=== PATIENT | male | born 1990 | race Caucasian/White ===

== ENCOUNTER 2022-12-30 08:03 | Emergency (ER) | payer OTHER, SELFPAY ==
[2022-12-30 08:07] VITALS: BP 156/94; PULSE 89; RESP 16; TEMP 36.6; O2SAT 97; BMI 34.3
--- NOTE | 2022-12-30 08:19 | ED_ITS ---
HPI - General Adult General Chief complaint: General Medical Stated complaint: medication on program Time Seen by Provider: 12/30/22 08:17 Source: patient Mode of arrival: ambulatory History of Present Illness HPI narrative: This is a 32 years old female presented to emergency department presented emergency department the requesting a dose of methadone, she is in a longterm right now. She has history of opioid use disorder she has been on methadone for about 2 years Onset (ago): day(s) (1) Radiation: non-radiation Severity: mild Related Data Allergies Allergy/AdvReac Type Severity Reaction Status Date / Time No Known Allergies Allergy Verified 12/30/22 08:18 Review of Systems Constitutional: Constitutional: Reports no additional constitutional complaints Cardiovascular: Cardiovascular: Reports no additional cardiovascular complaints Endocrine: Endocrine: Reports no additional endocrine complaints COUNTS INCLUDE 234 BEDS AT THE [facility] Past Medical History Attestation statement: The following information was validated with the patient. COUNTS INCLUDE 234 BEDS AT THE [facility] Narrative: Opioid use disorder Social History Social History Advance Directives: No Advance Directives Information Provided: No Physical Exam ED Vital Signs: Vital Signs - 24 hr 12/30/22 08:07 Temperature 97.8 F Pulse Rate 89 Respiratory Rate 16 Blood Pressure 156/94 H Pulse Oximetry 97 Oxygen Delivery Method Room Air BMI result Body Mass Index 34.3 Const Other: Looks well no toxic-appearing General: cooperative, healthy appearing, comfortable and no acute distress Nutritional Appearance: well nourished Orientation/consciousness: patient oriented x3 Limitations: no limitations HENMT Head: Yes normal to inspection General nose exam: Normal external nose present Face and sinus: Yes normal facial exam Mouth: Normal oral and palatal mucosa present Neck Neck: Yes normal visual inspection, Yes full ROM and Yes no lymphadenopathy Resp Effort & Inspection: normal respiratory effort Auscultation: clear to auscultation bilaterally Cardio Jugular venous distension: no JVD Rate: regular rate Rhythm: regular rhythm GI Inspection: Yes normal to inspection Palpation (GI): Soft to palpation, not firm, nontender and no guarding Auscultation: normal bowel sounds Skin General skin exam: no rashes or lesions noted Lesions: no lesions Rashes: no rashes Neuro General: patient oriented x3 Cranial nerves: Yes CN's II-XII intact bilaterally Motor exam (neuro): 5/5 motor strength present throughout Extrem General: Yes normal to inspection, Yes full ROM and Yes capillary refill normal Medications Administered Discontinued Medications Generic Name Dose Route Start Last Admin Trade Name Ana PRN Reason Stop Dose Admin Methadone HCl 120 mg 12/30/22 08:19 12/30/22 08:34 Methadone Hcl 20 Mg/2 Ml Oral.Conc PO 12/30/22 08:20 120 mg ONCE ONE Administration Medical Decision Making Medical Decision Making MDM Narrative: Patient presented requesting methadone does, will go ahed and administer the methadone Differential Diagnosis Differential Diagnoses: The differential diagnosis associated with the pre sentation includes Opioid use disorders like drug abuse/depression Discharge Plan Discharge Clinical Impression: Opioid abuse Patient Disposition: Home, Self-Care Instructions: Opioid Use Disorder (ED) Referrals: Physician,Unknown J [Primary Care Provider] - 5 days Stand Alone Forms: Work/School Release Interventions: ED Discharge Assessment Last Done: 12/30/22 08:43 Discharge Date/Time: 12/30/22 08:43
--- NOTE | 2022-12-30 08:28 | HE.PHANOTE ---
Methadone verifcation Patient brought last dose verification from [facility]. Patient last received methadone 120 mg on 12/29/22.
[2022-12-30] MEDS: methADONE HCl 20 MG/2 ML ORAL.CONC 120 MG PO (08:34)
--- NOTE | 2022-12-30 08:42 | PC.NURSE ---
PT WAS SEEN BY DR GRIMM, LAST DOSE WAS CONFIRMED AND PT WAS MEDICATED CHARTED. FOLLOW UP WITH CLINIC
== END 2022-12-30 08:43 | disposition home or self-care (01) ==
PROVIDERS: Emergency Provider Emergency Medicine
DX: F11.10 Opioid abuse, uncomplicated (principal); Z79.899 Other long term (current) drug therapy
CPT/HCPCS: 99282; 99283

== ENCOUNTER 2023-04-10 09:53 | Emergency (ER) | payer OTHER, SELFPAY ==
[2023-04-10 10:17] VITALS: BP 156/95; PULSE 88; RESP 16; TEMP 36.6; O2SAT 96; BMI 36.9
--- NOTE | 2023-04-10 12:49 | ED.BACK ---
HPI - Back Pain/Injury General Chief Complaint: Back Pain/Injury Stated Complaint: back pain around to l side Time Seen by Provider: 04/10/23 12:33 Source: patient Mode of arrival: ambulatory Limitations: no limitations History of Present Illness HPI Narrative: 32 yo male presenting to the ER for evaluation of painless left middle and lower back pain for the last 1 week. He states he woke up with the pain. The pain is in the left lower back and radiates to the left flank now as of 2 days ago. it also radiates to the buttock and intermittently down the leg and to the groin. No numbness, weakness, tingling, incontinence, issues emptying the bladder, urinary symptoms, abdominal pain, N/V/D or fevers. MD elicited complaint: back pain Onset (ago): week(s) (1) Timing: progressively worsening Severity: moderate Similar Symptoms Previously: No Quality: sharp and aching Location: left lower back Radiation: groin, buttocks and left upper leg Exacerbating factors: movement, walking and deep breaths Relieving factors: immobilization and medication Context: unknown Associated symptoms: denies other symptoms Treatments prior to arrival: NSAIDS Work related injury: No Related Data Previous Rx's Medication Instructions Recorded cyclobenzaprine 10 mg tablet 10 mg PO TID PRN muscle spasm #14 04/10/23 tabs ibuprofen 600 mg tablet 600 mg PO Q8H PRN pain #14 tabs 04/10/23 lidocaine 5 % topical patch 1 patch topical DAILY #15 ea 04/10/23 Allergies Allergy/AdvReac Type Severity Reaction Status Date / Time No Known Allergies Allergy Verified 12/30/22 08:18 Review of Systems Review of Systems: Yes all other systems are reviewed and are negative [facility] Social History Social History Advance Directives: No Physical Exam Vital Signs: Vital Signs: Last Vital Signs Temp 98 F 04/10/23 10:17 Pulse 88 04/10/23 10:17 Resp 16 04/10/23 10:17 BP 156/95 H 04/10/23 10:17 Pulse Ox 96 04/10/23 10:17 O2 Del Method Room Air 04/10/23 10:17 BMI result Body Mass Index 36.9 Appearance: Alert. Oriented X3. No acute distress. Head: normocephalic, atraumatic. Eyes: Pupils equal, round and reactive to light. ENT: Pharynx normal. No tonsillar swelling or exudate. Neck: Normal inspection. Neck supple. CVS: Normal heart rate and rhythm. Pulses normal. Respiratory: No respiratory distress. Breath sounds normal. Abdomen: Obese, Soft and nontender. +BS x4 Back: left upper lumbar area with soft tissue tenderness. no midline tenderness of the lumbar spine. no CVA tenderness +straight leg raise test Skin: Skin warm and dry. Normal skin color. Normal skin turgor. No rashes. Extremities: No lower extremity edema. No joint swelling. Neuro/psych: Oriented X 3. No motor deficit. No sensory deficit. CN II-XII intact. Normal speech and cognition. steady gait Medical Decision Making Medical Decision Making [facility] Narrative: 32 male presenting with 1 week of nontraumatic left lower back pain radiating to the left flank, left buttock and leg. no red flag symptoms of LBP. UA negative for infection and blood. doubt kidney stone or UTI. most likely MSK back pain. will treat accordingly. recommended outpatient PCP follow up and return precautions discussed Differential Diagnosis Differential Diagnoses: The differential diagnosis associated with the presentation includes Inflammatory disorders, malignancy, kidney stone, osteoporosis, nerve root compression, radiculopathy, plexopathy, degenerative disc disease, disc herniation, spinal stenosis, sacroiliac joint dysfunction, facet joint injury, and less likely infection?like abscess or diskitis Lab Data [facility] Lab Attestation statement: I reviewed the patient's lab results. Labs: Lab Results 04/10/23 Range/Units 13:02 Urine Color Yellow Urine Appearance Clear Urine pH 5.5 (5.0-9.0) Ur Specific [place] 1.025 (1.005-1.025) Urine Protein Negative (Neg-Trace) mg/dL Urine Glucose (UA) Negative (Negative) mg/dL Urine Ketones Negative (Negative) mg/dL Urine Blood Negative (Negative) Urine Nitrite Negative (Negative) Ur Leukocyte Esterase Negative (Negative) Tests considered The following testing was considered but not selected: CT scan considered given reports of flank pain but deferred given exam Prescription Management I considered prescription management with: Pain Medication Critical Care Time Critical Care Time Critical Care Time: No Discharge Plan Discharge Clinical Impression: Strain of lumbar region Qualifiers: Encounter type: initial encounter Qualified Code(s): S39.012A - Strain of muscle, fascia and tendon of lower back, initial encounter Patient Disposition: Home, Self-Care Instructions: Low Back Strain (ED), Lower Back Exercises (ED) Additional Instructions: Your urine test today was normal. Your pain is most likely musculoskeletal No bending, lifting or twisting. Use ice several times per day for 20 minutes at a time for the next 48 hours and then change to heat. Take medications as prescribed to help with pain and discomfort. Follow up with your Primary Care Doctor this week. If your pain worsens, if you develop new numbness, tingling, weakness, loss of function or incontinence call 911 or come back to the ER right away for evaluation. Prescriptions: New cyclobenzaprine 10 mg tablet 10 mg PO TID PRN (Reason: muscle spasm) Qty: 14 0RF ibuprofen 600 mg tablet 600 mg PO Q8H PRN (Reason: pain) Qty: 14 0RF lidocaine 5 % adhesive patch,medicated 1 patch topical DAILY Qty: 15 0RF Rx Instructions: leave on most painful area for up to 12 hrs
[2023-04-10 13:09] LABS: Appearance Urine Clear; Color Urine Yellow; Glucose Urine UA Negative (Negative); Leukocyte Esterase Urine Negative (Negative); Nitrite Urine Negative (Negative); PH 5.5 (5.0-9.0); Specific Gravity - Urine 1.025 (1.005-1.025); Urine Blood Negative (Negative); Urine Ketones Negative (Negative); Urine Protein Negative (Neg-Trace)
== END 2023-04-10 13:39 | disposition home or self-care (01) ==
PROVIDERS: Physician Assistant; Emergency Provider Emergency Medicine
DX: S39.012A Strain of muscle, fascia and tendon of lower back, initial encounter (principal); X58.XXXA Exposure to other specified factors, initial encounter; Y93.9 Activity, unspecified; Y92.9 Unspecified place or not applicable; Y99.9 Unspecified external cause status
CPT/HCPCS: 81003; 99282; 99283

== ENCOUNTER 2023-07-06 16:32 | Emergency (ER) | payer OTHER, SELFPAY ==
[2023-07-06 17:04] VITALS: BP 143/82; PULSE 96; RESP 18; TEMP 37; O2SAT 96; BMI 38.3
--- NOTE | 2023-07-06 17:42 | ED.GENADULT ---
HPI - General Adult General Chief complaint: Skin/Abscess/Foreign Body Stated complaint: scabies Time Seen by Provider: 07/06/23 17:14 Source: patient Mode of arrival: ambulatory Limitations: no limitations History of Present Illness HPI narrative: 33-year-old male presents to ED for itchiness and rash all over. Patient exposed to long-term member confirmed with scabies. Patient denies any swelling of lips, swelling of tongue, sensation of throat closing, or shortness of breath. Related Data Previous Rx's Medication Instructions Recorded cyclobenzaprine 10 mg tablet 10 mg PO TID PRN muscle spasm #14 04/10/23 tabs ibuprofen 600 mg tablet 600 mg PO Q8H PRN pain #14 tabs 04/10/23 lidocaine 5 % topical patch 1 patch topical DAILY #15 ea 04/10/23 permethrin 5 % topical cream 1 appl topical Q14D 2 doses #60 07/06/23 grams Allergies Allergy/AdvReac Type Severity Reaction Status Date / Time No Known Allergies Allergy Verified 07/06/23 17:07 Review of Systems Review of Systems: Scabies rash Yes all other systems are reviewed and are negative [facility] Social History Social History Advance Directives: No Advance Directives Information Provided: No Physical Exam ED Vital Signs: Vital Signs - 24 hr 07/06/23 17:04 Temperature 98.6 F Pulse Rate 96 Respiratory Rate 18 Blood Pressure 143/82 H Pulse Oximetry 96 Oxygen Delivery Method Room Air BMI result Body Mass Index 38.3 Const Orientation/consciousness: oriented to person, oriented to place, oriented to time and patient oriented x3 HENMT Head: Yes normal to inspection, Yes No palpable skull fracture present, Yes normocephalic and Yes atraumatic Eyes General: appearance normal, both eyes and all related structures Neck Neck: Yes normal visual inspection, Yes full ROM, Yes no lymphadenopathy, Yes no meningeal signs, Yes trachea midline, Yes supple, No anterior neck swelling and No tender Chest Chest palpation & inspection: normal inspection of the chest and normal palpation of entire chest wall Resp Effort & Inspection: normal respiratory effort and able to speak in complete sentences Auscultation: clear to auscultation bilaterally Cardio Jugular venous distension: no JVD Heart sounds: S1 normal heart sound present and S2 normal heart sound present GI Inspection: Yes normal to inspection Palpation (GI): Soft to palpation, not firm, nontender, no guarding and not rigid General: No CVA tenderness and Yes no CVA tenderness Back/Spine/Pelvis Back: no CVA tenderness, No CVA tenderness and No back tenderness Skin Other: Pruritus. Scabies rash on hands General skin exam: other (scabies) Neuro General: oriented to person, oriented to place, oriented to time, patient oriented x3, gait normal, tone normal, moves all extremities, Normal light touch and pain sensation, no meningeal signs, no focal motor deficits, CN's II-XI intact bilaterally and normal sensation to monofilament Extrem Other: Scabies rash General: Yes normal to inspection and Yes full ROM Psych Appearance: grossly normal, well kempt and not disheveled Medical Decision Making Medical Decision Making MDM Narrative: 33-year-old male presents to ED for exposure to confirmed case of scabies at the long-term. Patient is symptomatic with generalized rash and itchiness. Patient denies any anaphylactic symptoms. Patient states other long-term members have similar symptoms. Patient denies any fever, chills, chest pain or shortness of breath Differential Diagnosis Differential Diagnoses: The differential diagnosis associated with the presentation includes (Scabies, bedbugs bites) Independent Historian Clinical information obtained from an independent historian. History obtained from or confirmed by: Parent ([employer] tech) External Record Review External record reviewed: Other (Prior visits) Prescription Management I considered prescription management with: Other (Permethrin) Social Determinants Patient?s care significantly limited by Social Determinants of Health including: Other Social Determinant of Health (Lives at long-term) Discharge Plan Discharge Clinical Impression: Scabies Patient Disposition: Home, Self-Care Instructions: Scabies (ED) Additional Instructions: Return to the ED immediately for any swelling of lips, swelling of tongue, facial swelling, shortness of breath, chest pain, sensation of throat closing, worsening rash, or any other concerning symptoms. Please follow-up with primary care provider Prescriptions: New permethrin 5 % cream 1 appl topical Q14D Qty: 60 0RF Rx Instructions: apply second treatment 14 days after first treatment if live lice remain. Leave on for 8 to 14 hours before removing by shower or bath No Action cyclobenzaprine 10 mg tablet 10 mg PO TID PRN (Reason: muscle spasm) Qty: 14 0RF ibuprofen 600 mg tablet 600 mg PO Q8H PRN (Reason: pain) Qty: 14 0RF lidocaine 5 % adhesive patch,medicated 1 patch topical DAILY Qty: 15 0RF Rx Instructions: leave on most painful area for up to 12 hrs Discharge Date/Time: 07/06/23 19:49 Print Language: [place]
== END 2023-07-06 19:49 | disposition home or self-care (01) ==
PROVIDERS: Emergency Provider Emergency Medicine
DX: B86 Scabies (principal); Z79.899 Other long term (current) drug therapy
CPT/HCPCS: 99281; 99283

== ENCOUNTER 2023-08-05 12:32 | Emergency (ER) | payer OTHER, SELFPAY ==
--- NOTE | 2023-08-05 12:46 | ED_ITS ---
HPI - Skin/Abscess/Foreign Bdy General Chief complaint: Skin/Abscess/Foreign Body Stated complaint: scabies Time Seen by Provider: 08/05/23 12:56 Source: patient, RN notes reviewed and old records reviewed Mode of arrival: ambulatory History of Present Illness HPI narrative: 33-year-old male with no significant past medical history presenting to the ED complaining of persistent scabies infection s/p fci being infested 1 month ago. Patient admits he has use permethrin 3 times without relief however others at home are still having symptoms/staff can not force patient's/others to use treatment. Denies other new exposures, SOB, throat closing sensation, wheezing. MD complaint: rash Related Data Previous Rx's Medication Instructions Recorded cyclobenzaprine 10 mg tablet 10 mg PO TID PRN muscle spasm #14 04/10/23 tabs ibuprofen 600 mg tablet 600 mg PO Q8H PRN pain #14 tabs 04/10/23 lidocaine 5 % topical patch 1 patch topical DAILY #15 ea 04/10/23 permethrin 5 % topical cream 1 appl topical Q14D 2 doses #60 07/06/23 grams cetirizine 10 mg capsule (Zyrtec) 10 mg PO DAILY PRN allergy 08/05/23 symptoms #14 caps diphenhydramine HCl 25 mg capsule 25 mg PO TID PRN itching #14 caps 08/05/23 (Benadryl) hydrocortisone 1 % lotion 1 appl topical BID PRN itching 08/05/23 (Anti-Itch (hydrocortisone)) #120 mL permethrin 5 % topical cream 1 appl topical Q14D 2 doses #60 08/05/23 grams Allergies Allergy/AdvReac Type Severity Reaction Status Date / Time No Known Allergies Allergy Verified 07/06/23 17:07 Review of Systems Review of Systems: Constitutional: No Fever, No Chills ENT/Mouth: No Ear Pain, No Nasal Congestion, No Hoarseness, No sore throat, No Rhinorrhea, No Swallowing Difficulty Cardiovascular: No Chest Pain, No SOB Respiratory: No Cough, No Sputum, No Wheezing Gastrointestinal: No Nausea, No Vomiting Musculoskeletal: No joint pain, No Myalgias, No Joint Swelling Skin: No Skin Lesions,+ rash Neuro: No Weakness Yes all other systems are reviewed and are negative Constitutional: Constitutional: Reports as per HPI PMFSH Past Medical History Attestation statement: The following information was validated with the patient. Source: old records reviewed Social History Social History Advance Directives: No Advance Directives Information Provided: No Physical Exam Vital Signs: Vital Signs: Last Vital Signs Temp 98.4 F 08/05/23 12:47 Pulse 94 08/05/23 12:47 Resp 18 08/05/23 12:47 BP 134/91 H 08/05/23 12:47 Pulse Ox 96 08/05/23 12:47 O2 Del Method Room Air 08/05/23 12:47 BMI result Body Mass Index 43.1 Const: General: cooperative, healthy appearing and no acute distress Orientation/consciousness: patient oriented x3 Limitations: no limitations HEENT: Head: Yes normal to inspection and Yes atraumatic Ears: hearing grossly normal bilaterally General nose exam: Normal external nose present Face and sinus: Yes normal facial exam Eyes: General: appearance normal, both eyes and all related structures EOM: EOMs intact bilaterally Neck: Neck: Yes normal visual inspection and Yes no meningeal signs Resp: Effort & Inspection: normal respiratory effort, not labored, no nasal flaring, no respiratory distress and no stridor Auscultation: clear to auscultation bilaterally Cardio: Rate: regular rate Skin: Other: +diffuse erythematous rash to bilateral lower extremities, some in linear fashion. +excoriations No pustules/crusting. No palm/sole or mucous membrane involvement. Wounds: no wounds Neuro: General: patient oriented x3, tone normal and no meningeal signs Cranial nerves: Yes CN's II-XII intact bilaterally Gait exam (Neuro): Normal gait present Extrem: General: Yes normal to inspection Medical Decision Making Medical Decision Making MDM Narrative: 33-year-old male with no significant past medical history presenting to the ED complaining of persistent scabies infection s/p fci being infested 1 month ago. On exam vital signs stable, NAD, nontoxic appearing physical exam as noted above. Concern for persistent scabies infection. No evidence of cellulitis. Low suspicion for SJS, TENs. No sloughing or mucous membrane involvement Plan: Topical permethrin, hydrocortisone for symptomatic relief, Benadryl/Zyrtec, dermatology follow-up. Please refer to course for remaining clinical decision making, interpretation of labs/imaging results, and discussions with consultants and/or family members. Differential Diagnosis Differential Diagnoses: The differential diagnosis associated with the presentation includes As above External Record Review External record reviewed: Inpatient record, Office record, Outpatient record, Prior outpatient labs, Prior outpatient radiology, Primary care record and Outside ED record Tests considered The following testing was considered but not selected: As above Prescription Management I considered prescription management with: Other Chronic Conditions Patient?s care impacted by: Other Social Determinants Patient?s care significantly limited by Social Determinants of Health including: Inadequate housing, Low income, Alcoholism and drug addiction in family, Problems related to primary support group and Unemployment Discharge Plan Discharge Clinical Impression: Scabies Patient Disposition: Home, Self-Care Instructions: Scabies (ED) Additional Instructions: please take permethrin again as prescribed Hydrocortisone is a topical steroid which help with inflammation/itching, apply to rash only In addition Benadryl and Zyrtec will help with itching. Benadryl will make you drowsy, take at night. Please follow-up with dermatology If symptoms persist or worsen, rash spreads, you develop any shortness of breath or throat closing sensation return to the ED Prescriptions: New Zyrtec 10 mg capsule 10 mg PO DAILY PRN (Reason: allergy symptoms) Qty: 14 0RF diphenhydramine HCl [Benadryl] 25 mg capsule 25 mg PO TID PRN (Reason: itching) Qty: 14 0RF permethrin 5 % cream 1 appl topical Q14D Qty: 60 0RF Rx Instructions: apply second treatment 14 days after first treatment if live lice remain hydrocortisone [Anti-Itch (HC)] 1 % lotion 1 appl topical BID PRN (Reason: itching) Qty: 120 0RF No Action cyclobenzaprine 10 mg tablet 10 mg PO TID PRN (Reason: muscle spasm) Qty: 14 0RF ibuprofen 600 mg tablet 600 mg PO Q8H PRN (Reason: pain) Qty: 14 0RF lidocaine 5 % adhesive patch,medicated 1 patch topical DAILY Qty: 15 0RF Rx Instructions: leave on most painful area for up to 12 hrs permethrin 5 % cream 1 appl topical Q14D Qty: 60 0RF Rx Instructions: apply second treatment 14 days after first treatment if live lice remain. Leave on for 8 to 14 hours before removing by shower or bath Referrals: [facility] [Outside] Center,[facility] [Primary Care Provider] - Interventions: ED Discharge Assessment Last Done: 08/05/23 13:05
[2023-08-05 12:47] VITALS: BP 134/91; PULSE 94; RESP 18; TEMP 36.9; O2SAT 96; BMI 43.1
== END 2023-08-05 13:06 | disposition home or self-care (01) ==
PROVIDERS: Emergency Provider Internal Medicine
DX: B86 Scabies (principal); R21 Rash and other nonspecific skin eruption
CPT/HCPCS: 99282; 99283

== ENCOUNTER 2023-10-05 11:32 | Outpatient (REF) | payer OTHER, SELFPAY ==
[2023-10-05 12:52] LABS: MANUAL DIFF FLAG NO
[2023-10-05 12:59] LABS: Basophils Percent Auto 0.5 % (0-2); Eosinophils Absolute Auto 0.3 X10*3/uL (0.0-0.4); Eosinophils Percent Auto 3.3 % (0-4); Hematocrit 40.8 % (42.0-52.0); Hemoglobin 14.1 g/dl (14.0-18.0); Imm Gran Abs Auto 0.03 X10*3/uL (0.00-0.03); Imm Gran Pct Auto 0.4 % (0.0-0.4); Lymphocytes Absolute Auto 2.6 X10*3/uL (1.2-4.9); Lymphocytes Percent Auto 31.5 % (20-40); Mean Corpuscular HGB Conc 34.6 g/dl (31.0-36.0); Mean Corpuscular Hemoglobin 28.9 pg (27.0-33.0); Mean Corpuscular Volume 83.6 fL (80.0-98.0); Mean Platelet Volume 10.8 fL (9.4-12.4); Monocytes Absolute Auto 0.7 X10*3/uL (0.1-1.2); Monocytes Percent Auto 8.2 % (2-11); Neutrophils Absolute Auto 4.7 x10*3/uL (2.0-8.3); Neutrophils Percent Auto 56.1 % (45-73); Platelet Count 282 X10*3/uL (160-400); Red Blood Count 4.88 X10*6/uL (4.60-5.80); Red Cell Distribution Width 12.1 % (11.0-16.0); White Blood Count 8.3 X10*3/uL (4.8-10.8)
[2023-10-05 13:10] LABS: Estimated Average Glucose 103 mg/dL; Hemoglobin A1c % 5.2 % (<6.0)
[2023-10-05 13:34] LABS: Alanine Aminotransferase 13 U/L (0-40); Albumin Level 4.1 g/dL (3.5-5.0); Alkaline Phosphatase 83 U/L (39-117); Anion Gap 9 (12-20); Aspartate Amino Transferase 17 U/L (5-37); Bilirubin Total 0.2 mg/dL (0.0-1.0); Blood Urea Nitrogen 11 mg/dL (9-16); Calcium 8.8 mg/dL (8.4-10.2); Carbon Dioxide 26 mmol/L (22-29); Chloride 105 mmol/L (96-108); Cholesterol 199 mg/dL (<200); Estimated Glomerular Filt Rate > 60; Glucose Random 92 mg/dL (60-115); HDL Cholesterol 52 mg/dL (>40); LDL Cholesterol Calculated 119 mg/dL (<100); Potassium 4.1 mmol/L (3.3-5.1); Sodium 136 mmol/L (135-145); Triglycerides 143 mg/dL (<150)
[2023-10-05 13:41] LABS: Thyroid Stimulating Hormone 1.35 uIU/mL (0.32-4.0)
== END 2023-10-05 11:33 | disposition home or self-care (01) ==
LOC: HO.10HDL 11:32
PROVIDERS: Visit Provider Internal Medicine
DX: F31.9 Bipolar disorder, unspecified (principal); I10 Essential (primary) hypertension; R63.5 Abnormal weight gain; Z79.891 Long term (current) use of opiate analgesic
CPT/HCPCS: 36415; 80053; 80061; 83036; 84443; 85025

== ENCOUNTER 2024-02-26 12:23 | Emergency (ER) | payer OTHER, SELFPAY ==
--- NOTE | ~2024-02-26 | XR_ITS ---
EXAMINATION: XR ABDOMEN KUB CLINICAL INDICATION: Abdominal pain. Constipation. COMPARISON: None available. TECHNIQUE: AP view of the abdomen. FINDINGS: The bowel gas pattern is normal with no evidence of ileus or obstruction. There is a moderate volume of stool throughout the colon. No unusual soft tissue calcifications are noted. The bones are unremarkable. XR/XR KUB IMPRESSION: Nonobstructive bowel gas pattern. Moderate stool burden. Electronically signed by: Luc Gaffney DO 02/26/2024 03:37 PM EDT
--- NOTE | ~2024-02-26 | US_ITS ---
EXAMINATION: US SCROTUM CLINICAL INFORMATION: Testicular pain. COMPARISON: None available. TECHNIQUE: A sonogram of the scrotum was performed assessing francisco-scale appearance and color Doppler flow. Spectral Doppler analysis of the arterial and venous flow were performed in the testes bilaterally. FINDINGS: RIGHT: Right testicle measures 2.2 x 1.8 x 1.8 cm, volume 3.7 mL. No focal testicular parenchymal lesions are visualized. Spectral Doppler analysis of the arterial and venous flow is normal in the right testis. Right epididymal head is normal in size. No right hydrocele or varicocele is seen. Right epididymal Doppler flow is normal. LEFT: Left testicle measures 2.3 x 1.2 x 1.9 cm, volume 2.6 mL. No focal testicular parenchymal lesions are visualized. Spectral Doppler analysis of the arterial and venous flow is normal in the left testis. Left testicle is undescended however it is mobile. The epididymis is not identified on the left. US/US scrotum IMPRESSION: 1. No acute abnormality. 2. Undescended left testicle. Electronically signed by: Bro Hines MD 02/26/2024 03:35 PM EDT
--- NOTE | ~2024-02-26 | CT_ITS ---
EXAMINATION: CT ABDOMEN AND PELVIS WITHOUT CONTRAST CLINICAL INFORMATION: Right groin pain, hernia versus kidney stone. COMPARISON: Ultrasound scrotal and KUB today TECHNIQUE: Multidetector volumetric imaging was performed from the superior aspect of the liver through the pubic symphysis. Sagittal and coronal reformatted images were obtained on the technologist's workstation. This CT examination was performed using dose optimization techniques as appropriate, variously including the following: *Automated exposure control *Adjustment of mA and/or kV according to patient size (this includes techniques or standardized protocols for targeted exams where dose is matched to indication/reason for exam; i.e. extremities or head) *Use of iterative reconstruction technique DLP: 1506 mGy-cm FINDINGS: LUNG BASES: The visualized lung bases are unremarkable. LIVER, GALLBLADDER, AND BILIARY TREE: The liver is normal in size, shape, and attenuation. No focal hepatic lesion or biliary ductal dilatation is present. The gallbladder is unremarkable with no evidence of radiopaque gallstones, gallbladder wall thickening, or obvious pericholecystic inflammatory changes. PANCREAS: Unremarkable. SPLEEN: Unremarkable. ADRENAL GLANDS: Unremarkable. KIDNEYS AND URETERS: The kidneys are normal in size, shape, and attenuation. No hydronephrosis, hydroureter, or calculi seen. No perinephric stranding. BLADDER: Unremarkable. GASTROINTESTINAL TRACT: The small and large bowel are unremarkable. The appendix is unremarkable. ABDOMINAL WALL: No significant hernia is appreciated. LYMPH NODES: Normal. VASCULAR: Unremarkable. PELVIC VISCERA: Unremarkable. OSSEOUS STRUCTURES: Unremarkable. CT/CT abdomen pelvis wo IV con IMPRESSION: No significant abnormality. Fleischner guidelines were followed. Electronically signed by: Bro Hines MD 02/26/2024 09:35 PM EDT
[2024-02-26 12:40] VITALS: BP 147/100; PULSE 100; RESP 18; TEMP 36.1; O2SAT 96; BMI 47.3
--- NOTE | 2024-02-26 12:41 | ED_ITS ---
HPI - General Adult General Chief complaint: General Medical Stated complaint: personnal issue Time Seen by Provider: 02/26/24 19:47 Source: patient Mode of arrival: ambulatory Limitations: no limitations History of Present Illness ED Provider: DR. Everett HPI narrative: 33-year-old male came in for evaluation of multiple symptoms. Patient is on daily methadone and suffer from chronic constipation admit to not drinking water, patient try to avoid going to the bathroom because of the constipation and if he goes he asked to strain and he sees bright red blood in the toilet with his bowel movement. Also complaint of right groin/testicular pain for 2 days, patient not sexually active declined any risk for STDs, no history of intra-abdominal surgery, no penile discharge, no dysuria, no frequency urination, no hematuria. No nausea, no vomiting, no fever, no chills. Related Data Previous Rx's ?Medication ?Instructions ?Recorded cyclobenzaprine 10 mg tablet 10 mg PO TID PRN muscle spasm #14 04/10/23 tabs ibuprofen 600 mg tablet 600 mg PO Q8H PRN pain #14 tabs 04/10/23 lidocaine 5 % topical patch 1 patch topical DAILY #15 ea 04/10/23 permethrin 5 % topical cream 1 appl topical Q14D 2 doses #60 07/06/23 grams cetirizine 10 mg capsule (Zyrtec) 10 mg PO DAILY PRN allergy 08/05/23 symptoms #14 caps diphenhydramine HCl 25 mg capsule 25 mg PO TID PRN itching #14 caps 08/05/23 (Benadryl) hydrocortisone 1 % lotion 1 appl topical BID PRN itching 08/05/23 (Anti-Itch (hydrocortisone)) #120 mL permethrin 5 % topical cream 1 appl topical Q14D 2 doses #60 08/05/23 grams ibuprofen 800 mg tablet 800 mg PO Q8H PRN pain #14 tabs 02/26/24 Allergies Allergy/AdvReac Type Severity Reaction Status Date / Time No Known Allergies Allergy Verified 02/26/24 12:42 Review of Systems 2 Review of Systems: All other systems are reviewed and are negative Constitutional: Reports as per HPI and Reports no additional constitutional complaints Eyes: Reports as per HPI and Reports no additional eye complaints Reports system reviewed and no additional complaints, except as documented Cardiovascular: Reports as per HPI and Reports no additional cardiovascular complaints Respiratory: Reports as per HPI and Reports no additional respiratory complaints Gastrointestinal: Reports as per HPI and Reports no additional gastrointestinal complaints Genitourinary: Reports no additional female genitourinary complaints Musculoskeletal: Reports no additional musculoskeletal complaints Skin/Breast: Reports system reviewed and no additional complaints, except as docu Psychiatric: Reports no additional psychiatric complaints Endocrine: Reports no additional endocrine complaints Hematologic/Lymphatic: Reports no additional hematologic/lymphatic complaints Allergic/Immunologic: Reports no additional allergic/immunologic complaints Reports system reviewed and no additional complaints, except as documented and Reports Abnormal speech present [facility] Social History Social History Advance Directives: No Advance Directives Information Provided: No Do you have a plan to hurt others: No Plan Physical Exam ED Vital Signs: Vital Signs - 24 hr 02/26/24 12:40 02/26/24 19:52 Temperature 96.9 F 98.1 F Pulse Rate 100 80 Respiratory Rate 18 17 Blood Pressure 147/100 H 128/88 Pulse Oximetry 96 94 Oxygen Delivery Method Room Air Room Air BMI result Body Mass Index 47.3 Vital signs have been reviewed and appear to be correct. Blood pressure elevated. Heart rate normal. Respiratory rate normal. Temperature normal. Oxygen saturation normal. Appearance: Alert. Oriented X3. No acute distress. Head: Normal external exam. Normocephalic. Atraumatic. No Aguilar signs noted. No raccoon eyes noted Eyes: PERRLA. EOMI. Conjunctiva and sclera normal. Eyelids normal. ENT: TM's Normal. Pharynx normal. Uvula midline. Moist mucous membranes. No trismus noted. No drooling noted. No muffled voice noted. Neck: Normal inspection. Neck supple. FROM. No adenopathy. Thyroid Normal. No meningeal signs. No neck mass noted. CVS: Normal heart rate and rhythm. Heart sound normal. No murmurs noted. Pulses normal throughout. Respiratory: No respiratory distress. Painless inspiration. Breath sounds normal. No wheezes/rales/rhonchi noted. Chest nontender. No accessory muscle usage noted or decreased air movement noted. Abdomen: Soft and nontender. Bowel sounds normal in all 4 quadrants. No distention noted. No organomegaly noted. No visible injury noted. Rectal exam: In presence of female ED vehicle monitor technician no palpable internal hemorrhoid, no visible external hemorrhoids, no fissures, stool is brown guaiac negative, no prostate enlargement or tenderness. exam: Micro penis, No testicular swelling or tenderness, cremasteric reflexes intact bilaterally Back: No CVA tenderness. Full range of motion noted. Skin: Skin warm and dry. Normal skin color. Normal skin turgor. No rashes/lesions/lacerations noted. Extremities: No lower extremity edema. Extremities exhibit normal range of motion. Extremities nontender. Neuro: Oriented X 3. Cranial nerve exam: II-XII are grossly intact No motor deficit. No sensory deficit. Reflexes normal. Course Course Course Narrative: This is an RME: Additional HPI, ROS, PE not included below will be deferred to primary provider. RME assessment and note performed by: Caridad Theodore PA-C This is a 52-hprb-ejn-male, with a hx of HTN, who presents to the ER with complaints of constipation and bloody stool. Pt states that he has been struggling with hemorrhoids and constipation due to methadone. Reporting he has had right testicular pain x 1.5 days. Plan: labs, KUB, scrotal US Reevaluation(s) Reevaluation #1: Came in for right groin/right testicular pain and rectal bleed. 1. Guaiac negative with stable H&H patient was instructed if symptoms persist to follow-up with PCP. 2. Right groin/right testicular pain patient is not sexually active denies risk for STD, clean urine with no UTI. 3. Undescended left testicle patient was provided urologist information to follow-up with. CT abdomen pelvis appear unremarkable with no acute pathology awaiting for the official result signed out to Dr. Lobo to check the official results. Time: 21:00 Medications Administered Discontinued Medications Generic Name Dose Route Start Last Admin Trade Name Freq PRN Reason Stop Dose Admin Ibuprofen 800 mg 02/26/24 20:51 02/26/24 21:07 Ibuprofen 800 Mg Tablet PO 02/26/24 20:52 800 mg ONCE ONE Administration Medical Decision Making Differential Diagnosis Differential Diagnoses: The differential diagnosis associated with the presentation includes (Colitis, acute appendicitis, acute diverticulitis, hemorrhoids, rectal bleed, testicular torsion, prostatitis, UTI, kidney stone, right inguinal hernia.) Admission/Observation Consideration of admission/observation: Escalation of care including admission/observation considered Lab Data MDM Lab Attestation statement: I reviewed the patient's lab results. 02/26/24 13:05 02/26/24 13:05 Labs: Lab Results 02/26/24 02/26/24 Range/Units 13:05 20:26 WBC 8.5 (4.8-10.8) X10*3/uL RBC 5.02 (4.60-5.80) X10*6/uL Hgb 14.4 (14.0-18.0) g/dl Hct 41.3 L (42.0-52.0) % MCV 82.3 (80.0-98.0) fL MCH 28.7 (27.0-33.0) pg MCHC 34.9 (31.0-36.0) g/dl RDW 12.9 (11.0-16.0) % Plt Count 291 (160-400) X10*3/uL MPV 10.7 (9.4-12.4) fL Immature Gran % (Auto) 0.7 H (0.0-0.4) % Neut % (Auto) 54.2 (45-73) % Lymph % (Auto) 32.1 (20-40) % [place] % (Auto) 8.3 (2-11) % Eos % (Auto) 4.1 H (0-4) % Baso % (Auto) 0.6 (0-2) % Lymph # (Auto) 2.7 (1.2-4.9) X10*3/uL [place] # (Auto) 0.7 (0.1-1.2) X10*3/uL Eos # (Auto) 0.4 (0.0-0.4) X10*3/uL Baso # (Auto) 0.1 (0.0-0.2) X10*3/uL Abs Immat Gran (auto) 0.06 H (0.00-0.03) X10*3/uL Absolute Neuts (auto) 4.6 (2.0-8.3) x10*3/uL Absolute Nucleated RBC 0.000 (0.0-0.012) X10*3/uL Nucleated RBC % (auto) 0.0 (0.0-0.2) /100WBC ESR 17 H (0-15) MM/HR PT 11.1 (11.1-13.3) SEC INR 0.9 (0.9-1.1) APTT 37.4 H (26.0-36.8) SEC Sodium 137 (135-145) mmol/L Potassium 4.4 (3.3-5.1) mmol/L Chloride 106 (96-108) mmol/L Carbon Dioxide 23 (22-29) mmol/L Anion Gap 12 (12-20) BUN 16 (9-16) mg/dL Creatinine 1.10 (0.5-1.4) mg/dL Estim Creat Clear Calc 155.6 Estimated GFR > 60 Random Glucose 93 (60-115) mg/dL Calcium 9.3 (8.4-10.2) mg/dL Total Bilirubin 0.3 (0.0-1.0) mg/dL Direct Bilirubin 0.1 (0.0-0.5) mg/dL AST 17 (5-37) U/L ALT 15 (0-40) U/L Alkaline Phosphatase 99 (39-117) U/L C-Reactive Protein 0.66 H (< or = 0.50) mg/dL Total Protein 7.6 (6.5-8.0) g/dL Albumin 4.4 (3.5-5.0) g/dL Lipase 12 (8-78) U/L Urine Color Yellow Urine Appearance Clear Urine pH 5.5 (5.0-9.0) Ur Specific [place] 1.015 (1.005-1.025) Urine Protein Negative (Neg-Trace) mg/dL Urine Glucose (UA) Negative (Negative) mg/dL Urine Ketones Negative (Negative) mg/dL Urine Blood Negative (Negative) Urine Nitrite Negative (Negative) Ur Leukocyte Esterase Negative (Negative) Stool Occult Blood NEGATIVE (NEGATIVE) Independent Interpretation I performed an independent interpretation of an: Plain X-Ray (KUB: Nonobstructive bowel gas pattern. Moderate stool burden.), Ultrasound (Testicular ultrasound:1. No acute abnormality. 2. Undescended left testicle.) and CT Scan (Abdomen pelvis: No acute intra-abdominal pathology.) Discharge Plan Discharge Clinical Impression: Right groin pain, Undescended left testicle Patient Disposition: Home, Self-Care Instructions: Groin Pain (ED) Prescriptions: New ibuprofen 800 mg tablet 800 mg PO Q8H PRN (Reason: pain) Qty: 14 0RF No Action Zyrtec 10 mg capsule 10 mg PO DAILY PRN (Reason: allergy symptoms) Qty: 14 0RF diphenhydramine HCl [Benadryl] 25 mg capsule 25 mg PO TID PRN (Reason: itching) Qty: 14 0RF permethrin 5 % cream 1 appl topical Q14D Qty: 60 0RF Rx Instructions: apply second treatment 14 days after first treatment if live lice remain hydrocortisone [Anti-Itch (HC)] 1 % lotion 1 appl topical BID PRN (Reason: itching) Qty: 120 0RF cyclobenzaprine 10 mg tablet 10 mg PO TID PRN (Reason: muscle spasm) Qty: 14 0RF ibuprofen 600 mg tablet 600 mg PO Q8H PRN (Reason: pain) Qty: 14 0RF lidocaine 5 % adhesive patch,medicated 1 patch topical DAILY Qty: 15 0RF Rx Instructions: leave on most painful area for up to 12 hrs permethrin 5 % cream 1 appl topical Q14D Qty: 60 0RF Rx Instructions: apply second treatment 14 days after first treatment if live lice remain. Leave on for 8 to 14 hours before removing by shower or bath Referrals: Reba Glover MD [Primary Care Provider] - Keanu Miranda MD [Physician] - Print Language: Icelandic
[2024-02-26 13:11] LABS: MANUAL DIFF FLAG NO
[2024-02-26 13:13] LABS: Basophils Absolute Auto 0.1 X10*3/uL (0.0-0.2); Basophils Percent Auto 0.6 % (0-2); Eosinophils Absolute Auto 0.4 X10*3/uL (0.0-0.4); Eosinophils Percent Auto 4.1 % (0-4); Hematocrit 41.3 % (42.0-52.0); Hemoglobin 14.4 g/dl (14.0-18.0); Imm Gran Abs Auto 0.06 X10*3/uL (0.00-0.03); Imm Gran Pct Auto 0.7 % (0.0-0.4); Lymphocytes Absolute Auto 2.7 X10*3/uL (1.2-4.9); Lymphocytes Percent Auto 32.1 % (20-40); Mean Corpuscular HGB Conc 34.9 g/dl (31.0-36.0); Mean Corpuscular Hemoglobin 28.7 pg (27.0-33.0); Mean Corpuscular Volume 82.3 fL (80.0-98.0); Mean Platelet Volume 10.7 fL (9.4-12.4); Monocytes Absolute Auto 0.7 X10*3/uL (0.1-1.2); Monocytes Percent Auto 8.3 % (2-11); Neutrophils Absolute Auto 4.6 x10*3/uL (2.0-8.3); Neutrophils Percent Auto 54.2 % (45-73); Platelet Count 291 X10*3/uL (160-400); Red Blood Count 5.02 X10*6/uL (4.60-5.80); Red Cell Distribution Width 12.9 % (11.0-16.0); White Blood Count 8.5 X10*3/uL (4.8-10.8)
[2024-02-26 13:14] LABS: Appearance Urine Clear; Color Urine Yellow; Glucose Urine UA Negative (Negative); Leukocyte Esterase Urine Negative (Negative); Nitrite Urine Negative (Negative); PH 5.5 (5.0-9.0); Specific Gravity - Urine 1.015 (1.005-1.025); Urine Blood Negative (Negative); Urine Ketones Negative (Negative); Urine Protein Negative (Neg-Trace)
[2024-02-26 13:19] LABS: INTERNATIONAL NORM RATIO 0.9 (0.9-1.1); Prothrombin Time 11.1 SEC (11.1-13.3)
[2024-02-26 13:22] LABS: Partial Thromboplastin Time 37.4 SEC (26.0-36.8)
[2024-02-26 13:28] LABS: C Reactive Protein 0.66 mg/dL (< or = 0.50)
[2024-02-26 13:29] LABS: Alanine Aminotransferase 15 U/L (0-40); Albumin Level 4.4 g/dL (3.5-5.0); Alkaline Phosphatase 99 U/L (39-117); Anion Gap 12 (12-20); Aspartate Amino Transferase 17 U/L (5-37); Bilirubin Direct 0.1 mg/dL (0.0-0.5); Bilirubin Total 0.3 mg/dL (0.0-1.0); Blood Urea Nitrogen 16 mg/dL (9-16); Calcium 9.3 mg/dL (8.4-10.2); Carbon Dioxide 23 mmol/L (22-29); Chloride 106 mmol/L (96-108); Creatinine Clr Calc Pharmacy 155.6; Estimated Glomerular Filt Rate > 60; Glucose Random 93 mg/dL (60-115); Lipase 12 U/L (8-78); Potassium 4.4 mmol/L (3.3-5.1); Sodium 137 mmol/L (135-145); Total Protein 7.6 g/dL (6.5-8.0)
[2024-02-26 14:06] LABS: Erythrocyte Sedimentation Rate 17 MM/HR (0-15)
[2024-02-26 19:52] VITALS: BP 128/88; PULSE 80; RESP 17; TEMP 36.7; O2SAT 94
[2024-02-26 20:35] LABS: OBS Int Ctl Valid YES; OBS1 NEGATIVE (NEGATIVE)
[2024-02-26] MEDS: Ibuprofen 800 MG TABLET PO (21:07)
--- NOTE | 2024-02-26 22:49 | PC.NURSE ---
PA to bedside for reeval awaiting dc home.
[2024-02-26 23:56] VITALS: BP 126/86; PULSE 81; RESP 18; O2SAT 95
[2024-02-27 00:07] VITALS: BP 126/86; PULSE 81; RESP 18; TEMP -17.7; TEMP 0; O2SAT 95
== END 2024-02-26 23:58 | disposition home or self-care (01) ==
PROVIDERS: Physician Assistant Medical; Emergency Provider Emergency Medicine; PCP Internal Medicine
DX: Q53.10 Unspecified undescended testicle, unilateral (principal); N50.811 Right testicular pain; K59.00 Constipation, unspecified; R10.31 Right lower quadrant pain; K92.1 Melena; I10 Essential (primary) hypertension; F11.20 Opioid dependence, uncomplicated; Z79.899 Other long term (current) drug therapy
CPT/HCPCS: 36415; 74018; 74176; 76870; 80048; 80076; 81003; 82272; 83690; 85025; 85610; 85652; 85730; 86140; 99284

== ENCOUNTER 2024-03-08 10:05 | Emergency (ER) | payer OTHER, SELFPAY ==
--- NOTE | ~2024-03-08 | US_ITS ---
EXAMINATION: US SCROTUM CLINICAL INFORMATION: Pain. COMPARISON: CT abdomen/pelvis 02/26/2024. TECHNIQUE: A sonogram of the scrotum was performed assessing francisco-scale appearance and color Doppler flow. Spectral Doppler analysis of the arterial and venous flow were performed in the testes bilaterally. FINDINGS: RIGHT: Right testicle measures 2.8 x 1.6 x 2.1 cm, volume 4.9 mL. No focal testicular parenchymal lesions are visualized. Spectral Doppler analysis of the arterial and venous flow is normal in the right testis. Right epididymal head is normal in size. No right hydrocele or varicocele is seen. Right epididymal Doppler flow is normal. LEFT: Left testicle measures 2.8 x 1.8 x 1.8 cm, volume 4.9 mL. A 0.1 cm calcification is seen in the parenchyma, otherwise no suspicious focal testicular parenchymal lesions. Spectral Doppler analysis of the arterial and venous flow is normal in the left testis. Left epididymal head is normal in size. Small left hydrocele. No varicocele. Left epididymal Doppler flow is normal. US/US scrotum doppler IMPRESSION: Small left-sided hydrocele, otherwise no significant abnormality. Electronically signed by: Crystal Taylor MD 03/08/2024 11:48 AM EDT
--- NOTE | ~2024-03-08 | US_ITS ---
EXAMINATION: US SCROTUM CLINICAL INFORMATION: Pain. COMPARISON: CT abdomen/pelvis 02/26/2024. TECHNIQUE: A sonogram of the scrotum was performed assessing francisco-scale appearance and color Doppler flow. Spectral Doppler analysis of the arterial and venous flow were performed in the testes bilaterally. FINDINGS: RIGHT: Right testicle measures 2.8 x 1.6 x 2.1 cm, volume 4.9 mL. No focal testicular parenchymal lesions are visualized. Spectral Doppler analysis of the arterial and venous flow is normal in the right testis. Right epididymal head is normal in size. No right hydrocele or varicocele is seen. Right epididymal Doppler flow is normal. LEFT: Left testicle measures 2.8 x 1.8 x 1.8 cm, volume 4.9 mL. A 0.1 cm calcification is seen in the parenchyma, otherwise no suspicious focal testicular parenchymal lesions. Spectral Doppler analysis of the arterial and venous flow is normal in the left testis. Left epididymal head is normal in size. Small left hydrocele. No varicocele. Left epididymal Doppler flow is normal. US/US scrotum IMPRESSION: Small left-sided hydrocele, otherwise no significant abnormality. Electronically signed by: Crystal Taylor MD 03/08/2024 11:48 AM EDT
[2024-03-08 10:16] VITALS: BP 132/86; PULSE 101; RESP 16; TEMP 37; O2SAT 95; BMI 49.2
--- NOTE | 2024-03-08 10:56 | ED_ITS ---
HPI - Male Genitourinary General Chief complaint: Urogenital-Male Stated complaint: Testicle pain Time Seen by Provider: 03/08/24 10:47 Source: patient Mode of arrival: ambulatory Limitations: no limitations History of Present Illness ED Provider: Marty DELGADILLO HPI Narrative: 33-year-old male history of opiate use disorder on maintenance methadone, obesity, undescended left testicle presents to the emergency department complaints of testicular pain mostly left-sided however occasionally on the right as well, he reports pain is intolerable, it has been going on for 2 weeks he reports he was recently seen here he was told he had an undescended testicle and had to follow up with Urology however his appointment is in March and he can not take the pain any longer. He also reports he has been having weeks of lower GI bleeding each time he has a bowel movement bright red blood both in stool and in the toilet. He reports it is painless bleeding. He is not on blood thinners. No rectal trauma. Denies fevers, chills, chest pain, shortness of breath, nausea, vomiting, abdominal pain, changes in urination, flank pain. Related Data Previous Rx's ?Medication ?Instructions ?Recorded cyclobenzaprine 10 mg tablet 10 mg PO TID PRN muscle spasm #14 04/10/23 tabs ibuprofen 600 mg tablet 600 mg PO Q8H PRN pain #14 tabs 04/10/23 lidocaine 5 % topical patch 1 patch topical DAILY #15 ea 04/10/23 permethrin 5 % topical cream 1 appl topical Q14D 2 doses #60 07/06/23 grams cetirizine 10 mg capsule (Zyrtec) 10 mg PO DAILY PRN allergy 08/05/23 symptoms #14 caps diphenhydramine HCl 25 mg capsule 25 mg PO TID PRN itching #14 caps 08/05/23 (Benadryl) hydrocortisone 1 % lotion 1 appl topical BID PRN itching 08/05/23 (Anti-Itch (hydrocortisone)) #120 mL permethrin 5 % topical cream 1 appl topical Q14D 2 doses #60 08/05/23 grams ibuprofen 800 mg tablet 800 mg PO Q8H PRN pain #14 tabs 02/26/24 ketorolac 10 mg tablet 10 mg PO TID PRN pain 5 days #15 03/08/24 tabs pramoxine 1 % topical foam [address] BID #15 grams 03/08/24 (Proctofoam) Allergies Allergy/AdvReac Type Severity Reaction Status Date / Time No Known Allergies Allergy Verified 03/08/24 10:18 Review of Systems 2 Review of Systems: Yes all other systems are reviewed and are negative [facility] Past Medical History Attestation statement: The following information was validated with the patient. Source: old records reviewed and nursing notes reviewed Social History Social History Advance Directives: No Advance Directives Information Provided: Yes Physical Exam 2 Vital Signs: Vital Signs: Last Vital Signs Temp 98.9 F 03/08/24 13:23 Pulse 82 03/08/24 13:23 Resp 16 03/08/24 13:23 BP 129/78 03/08/24 13:23 Pulse Ox 96 03/08/24 13:23 O2 Del Method Room Air 03/08/24 13:23 BMI result Body Mass Index 49.2 vss Appearance: Alert.? Oriented X3.? No acute distress.? Head: Normocephalic, atraumatic, no step-offs or deformities Eyes: Pupils equal, round and reactive to light.? ENT: Pharynx normal.? Neck: Normal inspection.? Neck supple.? CVS: Normal heart rate and rhythm.? Pulses normal.? Respiratory: No respiratory distress.? Breath sounds normal.? Abdomen: Soft and nontender.? Sensative: Micro penis, No testicular swelling or tenderness, cremasteric reflexes intact bilaterally. Rectal exam normal rectum no visible hemorrhoids. No internal hemorrhoids palpated. No gross blood noted on PRABHU Skin: Skin warm and dry.? Normal skin color.? Normal skin turgor.? Extremities: No lower extremity edema.? No calf ttp. 5/5 strength to bilateral upper and lower extremities Back: No midline tenderness, no C-spine tenderness, full range of motion, no CVA tenderness bilaterally Neuro: Oriented X 3.? No motor deficit.? No sensory deficit. CN 2-12 intact Course Reevaluation(s) Reevaluation #1: CBC with a slight normocytic anemia appears to be around patient's baseline. No acute findings. Chemistry unremarkable. UA without infection. OBS negative. No active bleeding while in the department. Hemodynamically stable no signs of hemodynamic instability. Testicular ultrasound with small left-sided hydrocele otherwise no significant abnormality normal flow bilaterally. No signs of torsion. Plan at this time is to discharge patient home with urology follow-up will reach out to urology to see if patient can get in sooner. Patient to be sent home with Toradol for pain as it helped him also send Proctofoam. I suspect hemorrhoids. Educated patient on diagnosis and treatment plan, answered all question, patient verbalizes understanding. At this time patient will be discharged home, advised to return with new or worsening symptoms. Educated on worrisome signs and symptoms and when to return. At this time I feel comfortable discharge home. Time: 14:05 Medications Administered Discontinued Medications Generic Name Dose Route Start Last Admin Trade Name Freq PRN Reason Stop Dose Admin Ketorolac Tromethamine 30 mg 03/08/24 11:59 03/08/24 12:50 Ketorolac Tromethamine 30 Mg/Ml Vial IM 03/08/24 12:00 30 mg ONCE ONE Administration Medical Decision Making Medical Decision Making MDM Narrative: 33-year-old male presents with testicular pain for 2 weeks also reporting rectal bleeding for the past 2 weeks as well. Physical exam Micro penis, No testicular swelling or tenderness, cremasteric reflexes intact bilaterally. Rectal exam normal rectum no visible hemorrhoids. No internal hemorrhoids palpated. No gross blood noted on PRABHU History and physical exam concerning for possible undescended testicles that are causing discomfort. Less likely torsion. Rectal bleeding likely from internal hemorrhoids although none were palpated this does not exclude this diagnosis. Unlikely acute lower GI bleed. Will rule out acute blood loss anemia. Unlikely acute abdomen, diverticulitis. Plan labs, OBS, urine, imaging Differential Diagnosis Differential Diagnoses: The differential diagnosis associated with the presentation includes History and physical exam concerning for possible undescended testicles that are causing discomfort. Less likely torsion. Rectal bleeding likely from internal hemorrhoids although none were palpated this does not exclude this diagnosis. Unlikely acute lower GI bleed. Will rule out acute blood loss anemia. Unlikely acute abdomen, diverticulitis. Admission/Observation Consideration of admission/observation: Escalation of care including admission/observation considered Lab Data 03/08/24 12:51 03/08/24 12:51 Labs: Lab Results 09/20/24 09/20/24 Range/Units 12:36 12:51 WBC 8.4 (4.8-10.8) X10*3/uL RBC 4.79 (4.60-5.80) X10*6/uL Hgb 13.7 L (14.0-18.0) g/dl Hct 40.4 L (42.0-52.0) % MCV 84.3 (80.0-98.0) fL MCH 28.6 (27.0-33.0) pg MCHC 33.9 (31.0-36.0) g/dl RDW 12.9 (11.0-16.0) % Plt Count 283 (160-400) X10*3/uL MPV 9.9 (9.4-12.4) fL Immature Gran % (Auto) 0.7 H (0.0-0.4) % Neut % (Auto) 60.2 (45-73) % Lymph % (Auto) 27.1 (20-40) % [place] % (Auto) 8.0 (2-11) % Eos % (Auto) 3.5 (0-4) % Baso % (Auto) 0.5 (0-2) % Lymph # (Auto) 2.3 (1.2-4.9) X10*3/uL [place] # (Auto) 0.7 (0.1-1.2) X10*3/uL Eos # (Auto) 0.3 (0.0-0.4) X10*3/uL Baso # (Auto) 0.0 (0.0-0.2) X10*3/uL Abs Immat Gran (auto) 0.06 H (0.00-0.03) X10*3/uL Absolute Neuts (auto) 5.1 (2.0-8.3) x10*3/uL Absolute Nucleated RBC 0.000 (0.0-0.012) X10*3/uL Nucleated RBC % (auto) 0.0 (0.0-0.2) /100WBC Sodium 137 (135-145) mmol/L Potassium 4.7 (3.3-5.1) mmol/L Chloride 104 (96-108) mmol/L Carbon Dioxide 27 (22-29) mmol/L Anion Gap 11 L (12-20) BUN 16 (9-16) mg/dL Creatinine 1.27 (0.5-1.4) mg/dL Estim Creat Clear Calc 133.8 Estimated GFR > 60 Random Glucose 93 (60-115) mg/dL Calcium 9.2 (8.4-10.2) mg/dL Magnesium 2.1 (1.6-2.6) mg/dL Total Bilirubin 0.3 (0.0-1.0) mg/dL AST 19 (5-37) U/L ALT 18 (0-40) U/L Alkaline Phosphatase 83 (39-117) U/L Total Protein 7.1 (6.5-8.0) g/dL Albumin 4.1 (3.5-5.0) g/dL Urine Color Dark Yellow Urine Appearance Clear Urine pH 5.5 (5.0-9.0) Ur Specific [place] 1.025 (1.005-1.025) Urine Protein Negative (Neg-Trace) mg/dL Urine Glucose (UA) Negative (Negative) mg/dL Urine Ketones Negative (Negative) mg/dL Urine Blood Negative (Negative) Urine Nitrite Negative (Negative) Ur Leukocyte Esterase Negative (Negative) Stool Occult Blood NEGATIVE (NEGATIVE) Independent Interpretation I performed an independent interpretation of an: Ultrasound (US/US scrotum doppler IMPRESSION: Small left-sided hydrocele, otherwise no significant abnormality.) Radiology Impression Discussion of test interpretation with radiology: I have reviewed the radiologist's reading. External Record Review External record reviewed: Inpatient record, Office record, Outpatient record, Prior outpatient labs, Prior outpatient radiology and Primary care record Discharge Plan Discharge Clinical Impression: Hydrocele, Rectal bleeding Patient Disposition: Home, Self-Care Instructions: Rectal Bleeding (ED), Hydrocele (ED) Additional Instructions: Take your medications as prescribed. If you were prescribed antibiotics today, it is important that you take your medication to their entirety, do not skip any doses, do not finish them early. Follow-up with your primary care provider this week. Return to the emergency department with new or worsening symptoms. Such as fevers, chills, chest pain, shortness of breath, nausea, vomiting, dizziness, headache, vision changes, lethargy In case of emergency call 911 Toradol has been sent to your pharmacy, you tolerated this well in the department. Please take this as prescribed do not take this with ibuprofen, or other NSAIDs, do not mix this with alcohol. Side effects of this medication including increased risk for bleeding and possible kidney injury. FINDINGS: RIGHT: Right testicle measures 2.8 x 1.6 x 2.1 cm, volume 4.9 mL. No focal testicular parenchymal lesions are visualized. Spectral Doppler analysis of the arterial and venous flow is normal in the right testis. Right epididymal head is normal in size. No right hydrocele or varicocele is seen. Right epididymal Doppler flow is normal. LEFT: Left testicle measures 2.8 x 1.8 x 1.8 cm, volume 4.9 mL. A 0.1 cm calcification is seen in the parenchyma, otherwise no suspicious focal testicular parenchymal lesions. Spectral Doppler analysis of the arterial and venous flow is normal in the left testis. Left epididymal head is normal in size. Small left hydrocele. No varicocele. Left epididymal Doppler flow is normal. US/US scrotum doppler IMPRESSION: Small left-sided hydrocele, otherwise no significant abnormality. Prescriptions: New ketorolac 10 mg tablet 10 mg PO TID PRN (Reason: pain) 5 Days Qty: 15 0RF Rx Instructions: Tolerated IM or IV in department pramoxine [Proctofoam] 1 % foam [address] BID Qty: 15 0RF No Action Zyrtec 10 mg capsule 10 mg PO DAILY PRN (Reason: allergy symptoms) Qty: 14 0RF diphenhydramine HCl [Benadryl] 25 mg capsule 25 mg PO TID PRN (Reason: itching) Qty: 14 0RF permethrin 5 % cream 1 appl topical Q14D Qty: 60 0RF Rx Instructions: apply second treatment 14 days after first treatment if live lice remain hydrocortisone [Anti-Itch (HC)] 1 % lotion 1 appl topical BID PRN (Reason: itching) Qty: 120 0RF ibuprofen 800 mg tablet 800 mg PO Q8H PRN (Reason: pain) Qty: 14 0RF cyclobenzaprine 10 mg tablet 10 mg PO TID PRN (Reason: muscle spasm) Qty: 14 0RF ibuprofen 600 mg tablet 600 mg PO Q8H PRN (Reason: pain) Qty: 14 0RF lidocaine 5 % adhesive patch,medicated 1 patch topical DAILY Qty: 15 0RF Rx Instructions: leave on most painful area for up to 12 hrs permethrin 5 % cream 1 appl topical Q14D Qty: 60 0RF Rx Instructions: apply second treatment 14 days after first treatment if live lice remain. Leave on for 8 to 14 hours before removing by shower or bath Referrals: [facility] [Provider Group] - 2 days Reba Glover MD [Primary Care Provider] - 2 days Stand Alone Forms: Work/School Release Print Language: Macedonian
[2024-03-08 12:47] LABS: Appearance Urine Clear; Color Urine Dark Yellow; Glucose Urine UA Negative (Negative); Leukocyte Esterase Urine Negative (Negative); Nitrite Urine Negative (Negative); PH 5.5 (5.0-9.0); Specific Gravity - Urine 1.025 (1.005-1.025); Urine Blood Negative (Negative); Urine Ketones Negative (Negative); Urine Protein Negative (Neg-Trace)
[2024-03-08 12:49] LABS: OBS Int Ctl Valid YES; OBS1 NEGATIVE (NEGATIVE)
[2024-03-08] MEDS: Ketorolac Tromethamine 30 MG/ML VIAL IM (12:50)
[2024-03-08 12:58] LABS: MANUAL DIFF FLAG NO
[2024-03-08 12:59] LABS: Basophils Percent Auto 0.5 % (0-2); Eosinophils Absolute Auto 0.3 X10*3/uL (0.0-0.4); Eosinophils Percent Auto 3.5 % (0-4); Hematocrit 40.4 % (42.0-52.0); Hemoglobin 13.7 g/dl (14.0-18.0); Imm Gran Abs Auto 0.06 X10*3/uL (0.00-0.03); Imm Gran Pct Auto 0.7 % (0.0-0.4); Lymphocytes Absolute Auto 2.3 X10*3/uL (1.2-4.9); Lymphocytes Percent Auto 27.1 % (20-40); Mean Corpuscular HGB Conc 33.9 g/dl (31.0-36.0); Mean Corpuscular Hemoglobin 28.6 pg (27.0-33.0); Mean Corpuscular Volume 84.3 fL (80.0-98.0); Mean Platelet Volume 9.9 fL (9.4-12.4); Monocytes Absolute Auto 0.7 X10*3/uL (0.1-1.2); Neutrophils Absolute Auto 5.1 x10*3/uL (2.0-8.3); Neutrophils Percent Auto 60.2 % (45-73); Platelet Count 283 X10*3/uL (160-400); Red Blood Count 4.79 X10*6/uL (4.60-5.80); Red Cell Distribution Width 12.9 % (11.0-16.0); White Blood Count 8.4 X10*3/uL (4.8-10.8)
[2024-03-08 13:12] LABS: Alanine Aminotransferase 18 U/L (0-40); Albumin Level 4.1 g/dL (3.5-5.0); Alkaline Phosphatase 83 U/L (39-117); Anion Gap 11 (12-20); Aspartate Amino Transferase 19 U/L (5-37); Bilirubin Total 0.3 mg/dL (0.0-1.0); Blood Urea Nitrogen 16 mg/dL (9-16); Calcium 9.2 mg/dL (8.4-10.2); Carbon Dioxide 27 mmol/L (22-29); Chloride 104 mmol/L (96-108); Creatinine Clr Calc Pharmacy 133.8; Estimated Glomerular Filt Rate > 60; Glucose Random 93 mg/dL (60-115); Magnesium 2.1 mg/dL (1.6-2.6); Potassium 4.7 mmol/L (3.3-5.1); Sodium 137 mmol/L (135-145); Total Protein 7.1 g/dL (6.5-8.0)
[2024-03-08 13:23] VITALS: BP 129/78; PULSE 82; RESP 16; TEMP 37.2; O2SAT 96
[2024-03-08 14:16] VITALS: BP 129/78; PULSE 82; RESP 16; TEMP 37.2; O2SAT 96
== END 2024-03-08 14:17 | disposition home or self-care (01) ==
PROVIDERS: Physician Assistant; Emergency Provider Emergency Medicine; PCP Internal Medicine
DX: N50.812 Left testicular pain (principal); N43.3 Hydrocele, unspecified; R10.2 Pelvic and perineal pain; Z79.899 Other long term (current) drug therapy
CPT/HCPCS: 36415; 76870; 80053; 81003; 82272; 83735; 85025; 93975; 96372; 99283; 99284; J1885

== ENCOUNTER 2024-03-12 13:39 | Outpatient (AMB) | payer OTHER, SELFPAY ==
--- NOTE | 2024-03-12 13:47 | A.OFFVIS_ITS ---
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 He is a patient of Dr. Glover. He seen for the following urologic conditions - epididymal pain Epididymal pain Describes pain on his testicles On exam has sensitivity of the head of the epididymis Reassurance provided Discussion regarding treatment Recommend trial anti-inflammatory PFSH Medical History (Updated 04/10/24 @ 12:12 by Debo Phan RN) Bipolar disorder Opioid abuse HTN (hypertension) Surgical History No pertinent past surgical history Social History (Updated 04/02/24 @ 10:13 by GARRY Mancilla) Housing Other:: long-term Are you a primary insurance healthcare consultant to a significant other at home: No Do you presently have visiting nurse or other home services: No Patient Tobacco Use Status: Current everyday Tobacco user Tobacco use type: Cigarette Cigarettes Per Day: 10 Years Smoked: 15 Review of Systems Const Denies chills and Denies fever(s) Card Reports no additional complaints and Denies syncope Resp Denies cough GI Denies abdominal pain and Denies heartburn Reports as per HPI and Denies change in libido Neuro Denies syncope Psych Denies change in libido Endo Denies change in libido Physical Exam Const General: cooperative, healthy appearing, comfortable and no acute distress Orientation/consciousness: patient oriented x3 HEENT Face and sinus: Yes normal facial exam Mouth: moist mucous membranes Neck Neck: Yes normal visual inspection, Yes full ROM and Yes trachea midline Chest Chest palpation & inspection: normal inspection of the chest Resp Effort & Inspection: normal respiratory effort, able to speak in complete sentences and no respiratory distress GI Inspection: Yes normal to inspection Back/Spine/Pelvis Cervical Spine: normal cervical lordosis Thoracic/Lumbar Spine: thoracic and lumbar spine normal to inspection Skin General skin exam: no rashes or lesions noted Neuro General: patient oriented x3, gait normal, tone normal and moves all extremities Extrem General: Yes normal to inspection and Yes capillary refill normal Results AMB Urinalysis, Automated UA Leukoctes 0 Katerin/uL Last Edit by BRIAN Guaman on 03/12/24 13:59 UA Nitrite Negative Last Edit by Chavo Plummer [facility] on 03/12/24 13:59 UA Urobilinogen 0.2 mg/dL Last Edit by Chavo Plummer [facility] on 03/12/24 13:5 9 UA Protein 15 mg/dL Last Edit by Chavo Plummer [facility] on 03/12/24 13:59 UA pH 6.0 Last Edit by Chavo Plummer [facility] on 03/12/24 13:59 UA Blood 0 Ez/uL Last Edit by Chavo Plummer [facility] on 03/12/24 13:59 UA Specific [place] 1.030 Last Edit by Chavo Plummer [facility] on 03/12/24 13: 59 UA Ketone Negative Last Edit by Chavo Plummer [facility] on 03/12/24 13:59 UA Bilirubin 1 mg/dL Last Edit by Chavo Plummer [facility] on 03/12/24 13:59 UA Glucose 0 mg/dL Last Edit by Chavo Plummer [facility] on 03/12/24 13:59 Results Reviewed Results Reviewed: Laboratory Last Values Urine pH (Auto) 6.0 03/12/24 13:58 Specific [place] (Auto) 1.030 03/12/24 13:58 Urine Protein (Auto) 15 mg/dL 03/12/24 13:58 Glucose (UA)(Auto) 0 mg/dL 03/12/24 13:58 Urine Ketones (Auto) Negative 03/12/24 13:58 Urine Blood (Auto) 0 Ez/uL 03/12/24 13:58 Urine Nitrite (Auto) Negative 03/12/24 13:58 Urine Bilirubin (Auto) 1 mg/dL 03/12/24 13:58 Urine Urobilinogen (Auto) 0.2 mg/dL 03/12/24 13:58 Leukocyte Esterase (Auto) 0 Katerin/uL 03/12/24 13:58 Assessment & Plan Assessment & Plan (1) Bilateral groin pain: Code(s): R10.31 - Right lower quadrant pain; R10.32 - Left lower quadrant pain Category: Medical Plan Trial short-term course of anti-inflammatory Orders: Orders AMB Urinalysis Automated 03/12/24 Z13.9 - Encounter for screening, unspecified Medications: New meloxicam 15 mg PO DAILY 30 tabs 0RF 30 days R10.31 - Right lower quadrant pain, R10.32 - Left lower quadrant pain Patient Instructions: Imaging studies, laboratory and physical exam results were discussed and reviewed in detail. No major barriers to patient understanding were identified. An opportunity to ask questions regarding the treatment plan was provided. All questions were answered. The patient expressed understanding and agreement with the above treatment plan. The patient is aware they should contact our office by phone for worsening of their current condition or the appearance of new urologic symptoms. Compliance is encouraged with any medications and followup testing that is ordered. It is a privilege to participate in the urologic care of your patient. If you have any questions or concerns regarding treatment for the above conditions, or other urologic issues, please do not hesitate to contact me. The office telephone contact is [phone]. This note is constructed using voice recognition software. While every effort has been made to ensure accuracy labor law professor errors may have been included. Yours sincerely, Dr Keanu Miranda MD, [facility]rology Providers of Expert, Compassionate Care for the Genitourinary System Coding Level of Care Code New Pt Level 4 (35242) Diagnoses Bilateral groin pain R10.31; R10.32
== END 2024-03-12 14:29 | disposition home or self-care (01) ==
PROVIDERS: PCP Internal Medicine; Visit Provider Urology
DX: R10.31 Right lower quadrant pain (principal); R10.32 Left lower quadrant pain
CPT/HCPCS: 99204

== ENCOUNTER → 2024-03-12 13:39 | Outpatient (BNVA) | payer OTHER, SELFPAY | PROVIDERS: PCP Internal Medicine; Visit Provider Urology | DX: R10.31 Right lower quadrant pain (principal); R10.32 Left lower quadrant pain | CPT/HCPCS: 81003; 99202 ==

== ENCOUNTER 2024-04-02 10:04 | Outpatient (AMB) | payer OTHER, SELFPAY ==
--- NOTE | 2024-04-02 10:07 | MHC.OFFVIS ---
Vital Signs 04/02/24 10:15 Height 6 ft 1 in Weight 364 lb BMI 48.0 BP 145/84 H Blood Pressure Location Rt brachial Position Sitting Pulse 97 Intake Visit Reasons: rectal pain and Bleeding r/O anal fissure Intake Note: Patient referred by pcp Dr. Glover for rectal pain and bleeding. R/o anal fissure. Ongoing for 3m. Patient c/o: constipation, pain every time with BM. Taking ibuprofen. US scrotum: 03-08-2024. Second Rigger Required: No Accompanied by: Self / Same As Patient Allergies No Known Allergies Allergy (Verified 04/02/24 10:12) HPI Comments Details: Patient was for evaluation of severe anorectal pain times 2-3 months time. Patient was never had this before. Patient was a longstanding history of constipation and has had hard stool for many years time. Patient has never had colonoscopy before. Patient otherwise is able to tolerate a diet. Patient denies any anal receptive practice. Chart was reviewed patient evaluated [facility] Medical History (Updated 04/02/24 @ 10:14 by GARRY Mancilla) HTN (hypertension) Social History (Updated 04/02/24 @ 10:13 by GARRY Mancilla) Tobacco use type: Cigarette Cigarettes Per Day: 10 Physical Exam Vital Signs: Last Vital Signs Pulse 97 04/02/24 10:15 BP 145/84 H 04/02/24 10:15 BMI result Body Mass Index 48.0 GI Other: Very corpulent abdomen. Rectal exam demonstrates both anterior and posterior anal fissures. No evidence of any external hemorrhoids. Because of patient's discomfort, a rectal exam was deferred. Assessment & Plan Assessment & Plan (1) Anal fissure: Code(s): K60.2 - Anal fissure, unspecified Category: Surgical Plan Findings were reviewed with the patient. Because of his significant symptoms of pain and to the point were he is afraid to move his bowels, I do not think conservative therapy we will relieve his symptoms and a reasonable amount of time. I will have Dr. Gore, colorectal surgeon review of the case and I think the patient would benefit from a sphincterotomy. Further interventions studies will be directed by Dr. Gore is recommendation. Coding Level of Care Code New Pt Level 4 (76711) Diagnoses Anal fissure K60.2
[2024-04-02 10:15] VITALS: BP 145/84; PULSE 97; BMI 48.0
== END 2024-04-02 11:01 | disposition home or self-care (01) ==
PROVIDERS: PCP Internal Medicine; Referring Provider Internal Medicine; Visit Provider Surgery
DX: K60.2 Anal fissure, unspecified (principal)
CPT/HCPCS: 99204

== ENCOUNTER → 2024-04-02 10:04 | Outpatient (BNVA) | payer OTHER, SELFPAY | PROVIDERS: PCP Internal Medicine; Referring Provider Internal Medicine; Visit Provider Surgery | DX: K60.2 Anal fissure, unspecified (principal) | CPT/HCPCS: 99202 ==

== ENCOUNTER 2024-04-12 09:18 | Day surgery (SDC) | payer OTHER, SELFPAY ==
[2024-04-10 12:13] VITALS: BMI 48.0
[2024-04-12] VITALS (9 sets, daily range): BP systolic 105–144; BP diastolic 57–100; PULSE 80–96; RESP 16–20; TEMP 36.2–36.6; O2SAT 93–98; BMI 48.2
--- NOTE | 2024-04-12 09:59 | MHC.SHP ---
Pre-Procedural Eval Section A - 24 Hr Update-Section A only Date of Service: 04/12/24 The patient is an INPATIENT: No Changes since office visit: No Cold of Flu in the past 2 weeks, No New Medical Problems, No Changes in Medication and No Patient answered all questions The patient has been examined within 24 hours of the surgical procedure. The History & Physical has been completed within 30 days and I have reviewed it.: Yes Section B - Complete if H&P > 30 days Chief Complaint: Anal fissure, unspecified Allergies: Allergies Allergy/AdvReac Type Severity Reaction Status Date / Time No Known Allergies Allergy Verified 04/12/24 09:43 Plan I have reviewed the history and physical and performed a pertinent physical examination on my patient. No changes have occurred unless specified. Time Spent With Patient Time: Total time managing care of this patient today ____ minutes.
[2024-04-12] MEDS: Lactated Ringers 1,000 ML 80 ML IVCONT (10:21)
[2024-04-12] MEDS: Albuterol Sulfate (0.083%) 2.5 MG/3 ML VIAL.NEB INHALE (10:38)
--- NOTE | 2024-04-12 11:14 | W.PM.OPN ---
Operative Note Operative Note Date of Service: 04/12/24 Narrative: Preop diagnosis: Anal fissure Postop diagnosis: Anal fissure, anterior midline posterior midline Procedure: Exam under anesthesia, left lateral internal sphincterotomy Surgeon: Yusuf Gore MD The patient is a 33-year-old male was had chronic pain with passage of stools. Examination in the office revealed a posterior midline fissure as well as an anterior midline fissure in the distal anoderm. In view of persistent symptoms , he wanted to proceed with sphincterotomy. He understood the technique of the planned procedure as well as the risks, benefits, and alternatives. He was brought to the operating room. In view of his morbid obesity, he was positioned in modified lithotomy position instead of prone maribel-knife position. The perianal area was prepped and draped in the usual sterile fashion. A surgical time-out was done. The patient received Cefotan 2 g IV preoperatively Retraction of the buttocks revealed this posterior midline fissure as well as the anterior midline fissure in the distal anoderm. I infiltrated the perianal area with lidocaine 1% Inserted the Casrto retractor. I examined the anal canal circumferentially. He did have some hemorrhoid as well internal external. There were no other obvious lesions Please note that in view of his morbid obesity, exposure of the entire anus was limited to some extent. I palpated for the intersphincteric groove on the left. I made an incision on the skin overlying this with a blade 15. I used blunt dissection with fine hemostats to gently define the sphincter as well as intersphincteric plane. I isolated the internal sphincter fibers using the hemostat. I divided the internal sphincter with electrocautery down to the level of the dentate line I then closed the incision with a running chromic 3-0 stitch I observed for hemostasis. Once hemostasis was confirmed, I infiltrated the perianal area with Marcaine 0.5% for postop analgesia. Dressings were applied. The procedure was completed The patient tolerated the procedure well. There were no immediate complications. Initial and final counts of sponges and instruments were correct. Estimated blood loss was about 25 cc. The patient was extubated without difficulty and transferred to the recovery room with stable vital signs.
--- NOTE | 2024-04-12 11:26 | HO.ANESPROP2 ---
[facility] Active Problems Active Problems: All Active Problems Anal fissure (Acute) Bilateral groin pain (Acute) Past Medical History Medical History (Updated 04/10/24 @ 12:12 by Debo Phan RN) Bipolar disorder Opioid abuse HTN (hypertension) Family History Family history of problems with anesthesia: No Surgical History Surgical History No pertinent past surgical history History of Problems with Anesthesia: No Social History Social History (Updated 04/02/24 @ 10:13 by GARRY Mancilla) Housing Other:: penitentiary Are you a primary intensive care unit nurse to a significant other at home: No Do you presently have visiting nurse or other home services: No Patient Tobacco Use Status: Current everyday Tobacco user Tobacco use type: Cigarette Cigarettes Per Day: 10 Years Smoked: 15 Smoked in Last 30 Days: Yes Use of substances other than those prescribed or required for medical reasons: No Have you been hit, kicked, punched, or otherwise hurt by someone within the past year? If so, by whom?: No Are you DNR?: No Advance Directives: No Advance Directives Information Provided: Yes (Mother Fela [phone]) Advance Directives on File: No Recently lost weight without trying: No How much weight loss: Not applicable Eating poorly because of decreased appetite: No Nutrition screen score: 0 Nutrition Risks: No Nutritional Risk Poor oral hygiene: No Meds Allergies Allergy/AdvReac Type Severity Reaction Status Date / Time No Known Allergies Allergy Verified 04/12/24 09:43 Active Medications: Current Medications Lactated Ringer's (Lr) 1,000 mls @ 80 mls/hr IVCONT .[id number] [facility] Last Admin: 04/12/24 10:21 Dose: 80 mls/hr Home Medications ?Medication ?Instructions ?Recorded ?Confirmed ?Last Taken ?Type bupropion HCl 300 mg 24 hr tablet, 300 mg PO QAM 04/02/24 04/12/24 Unknown History extended release (Wellbutrin XL) docusate sodium 100 mg capsule 100 mg PO DAILY 04/02/24 04/12/24 Unknown History (Colace) duloxetine 30 mg capsule,delayed 30 mg PO BID 04/02/24 04/12/24 Unknown History release gabapentin 600 mg tablet 600 mg PO TID 04/02/24 04/12/24 Unknown History hydroxyzine HCl 50 mg tablet 50 mg PO TID 04/02/24 04/12/24 Unknown History ibuprofen 800 mg tablet 800 mg PO Q8H 04/02/24 04/12/24 04/11/24 History naloxone 4 mg/actuation nasal 4 mg intranasal Q2M PRN overdose 04/02/24 04/12/24 Unknown History spray (Narcan) prazosin 2 mg capsule 2 mg PO QPM 04/02/24 04/12/24 Unknown History quetiapine 200 mg tablet (Seroquel) 200 mg PO BEDTIME 04/02/24 04/12/24 Unknown History topiramate 50 mg tablet (Topamax) 50 mg PO BID 04/02/24 04/12/24 Unknown History lisinopril 40 mg tablet 40 mg PO DAILY 04/10/24 04/12/24 04/11/24 History methadone 10 mg/mL oral concentrate 200 mg PO DAILY 04/10/24 04/12/24 04/12/24 History propranolol 10 mg tablet 10 mg PO TID 04/10/24 04/12/24 04/11/24 History Exam Height,Weight and Vital Signs: Height 6 ft 1 in Weight 165.561 kg Last Vital Signs Temp 97.9 F 04/12/24 09:49 Pulse 81 04/12/24 10:38 Resp 18 04/12/24 10:38 BP 141/95 H 04/12/24 09:49 Pulse Ox 95 04/12/24 09:49 O2 Del Method Room Air 04/12/24 09:49 Airway Mallampati Class: II TM Dist: >3cm Loose/Missing/Broken Teeth: Upper and Lower Assessment and Plan Assessment Anesthesia Assessment: Anesthesia Plan Discussed and Chart Reviewed Final Anesthetic Review Family History of Problems with Anesthesia: No History of Problems with Anesthesia: No NPO: Yes ASA Class: III Final Preanesthetic Review: No Changes in Pt Med Stat, Meds/Allgs Chart Reviewed, Consent Obtained/Reviewed and Anes Risks/Benef Reviewed Patient Risk: Intermediate Procedure Risk: Low Anesthetic Plan Anesthetic Plan: GA Disposition: Standard PACU
[2024-04-12] MEDS: HYDROmorphone HCl 0.5 MG/0.5 ML SYRINGE IVPUSH (11:40)
[2024-04-12] MEDS: oxyCODONE HCl Immed Release 5 MG TABLET PO (12:12)
== END 2024-04-12 13:30 | disposition home or self-care (01) ==
PROVIDERS: PCP Internal Medicine; Visit Provider Surgery
PROC: (CPT 46080; principal; 2024-04-12 11:00)
DX: K60.2 Anal fissure, unspecified (principal); G89.29 Other chronic pain; K59.00 Constipation, unspecified; K64.8 Other hemorrhoids; K64.4 Residual hemorrhoidal skin tags; I10 Essential (primary) hypertension; E66.01 Morbid (severe) obesity due to excess calories; Z68.42 Body mass index [BMI] 45.0-49.9, adult; Z79.899 Other long term (current) drug therapy; F11.90 Opioid use, unspecified, uncomplicated; F17.210 Nicotine dependence, cigarettes, uncomplicated
CPT/HCPCS: 46080; 94640; J0131; J1100; J1171; J1885; J2003; J2250; J2405; J2704; J2795; J3010

== ENCOUNTER → 2024-04-12 09:18 | Outpatient (BNV) | payer OTHER, SELFPAY | PROVIDERS: PCP Internal Medicine; Visit Provider Surgery | DX: K60.2 Anal fissure, unspecified (principal) | CPT/HCPCS: 46080 ==

== ENCOUNTER 2024-04-25 10:22 | Outpatient (AMB) | payer OTHER, SELFPAY ==
--- NOTE | 2024-04-25 10:24 | A.OFFVIS_ITS ---
Intake Visit Reasons: S/P EUA, lateral internal sphincterotomy Intake Note: This patient presents for follow-up status post EUA, lateral internal sphincterotomy. Pt c/o; reports no complaints pertaining to surgery. Stone Paver Required: No Accompanied by: Self / Same As Patient Allergies No Known Allergies Allergy (Verified 04/25/24 10:28) HPI HPI S/P EUA, lateral internal sphincterotomy: Details: He underwent lateral internal sphincterotomy for an anal fissure last April 12, 2024. He tolerated procedure well. He says he is doing well. He still notices some blood once in a while but says that he feels that he is much better with regards to the anal pain. He thinks that the surgery has helped him a lot. [facility] Medical History Bipolar disorder Opioid abuse HTN (hypertension) Surgical History Hx of surgical procedure (~04/12/24) Social History Housing Other:: [facility] Are you a primary laboratory animal care veterinarian to a significant other at home: No Do you presently have visiting nurse or other home services: No Patient Tobacco Use Status: Current everyday Tobacco user Tobacco use type: Cigarette Cigarettes Per Day: 10 Years Smoked: 15 Review of Systems Const Denies chills and Denies fever(s) Card Denies chest pain Physical Exam Const Other: Morbidly obese General: comfortable and no acute distress Resp Effort & Inspection: normal respiratory effort GI Other: Rectal exam shows the sphincterotomy site to be healing well without any signs of infection. There is no tenderness or induration and there is no discharge Assessment & Plan Assessment & Plan (1) Anal fissure: Code(s): K60.2 - Anal fissure, unspecified Category: Surgical Plan: Status post lateral internal sphincterotomy. He is doing quite well postop. His incision is well healing He feels much better with regards to the anal pain with bowel movements. I instructed him to continue doing hot Sitz baths. He can follow up with me on a p.r.n. basis. He is to avoid constipation as well and hard stools. Coding Level of Care Code Global (38267) Diagnoses Anal fissure K60.2
== END 2024-04-25 11:14 | disposition home or self-care (01) ==
LOC: HO.HGS 10:23
PROVIDERS: PCP Internal Medicine; Visit Provider Surgery
DX: K60.2 Anal fissure, unspecified (principal)
CPT/HCPCS: 99024

== ENCOUNTER → 2024-04-25 10:22 | Outpatient (BNVA) | payer OTHER, SELFPAY | PROVIDERS: PCP Internal Medicine; Visit Provider Surgery | DX: K60.2 Anal fissure, unspecified (principal) | CPT/HCPCS: 99212 ==

== ENCOUNTER 2024-06-15 13:34 | Emergency (ER) | payer OTHER, SELFPAY ==
[2024-06-15 13:42] VITALS: BP 137/80; PULSE 110; RESP 20; TEMP 36.9; O2SAT 98; BMI 47.5
--- NOTE | 2024-06-15 13:42 | ED.GENADULT ---
HPI - General Adult General Chief complaint: Medical Clearance Stated complaint: medical clearance Time Seen by Provider: 06/15/24 15:12 Source: patient Mode of arrival: ambulatory Limitations: no limitations History of Present Illness ED Provider: DAY GAUTHIER PA-C HPI narrative: 34 year old female assigned male at with pmhx significant for polysubstance abuse, bipolar disorder, hypertension presents to the ED today requesting medical clearance to return back to her sober living facility. She presents with her infant childcare provider from the home. Per patient, she reports leaving her facility 2 days ago to visit her sister in [place]. While in [place], admits to injecting heroin. She last used yesterday morning. She attempted to return back to her sober living however they require medical clearance. Denies any physical complaints at present. She has not been able to take any of her medications as the facility requires medical clearance prior to administration of medications. She last had her methadone , 2 days ago. Has missed a total of 1 dose. She currently takes 200 mg methadone. Her infant childcare provider at bedside states that they will be able to administer all home medications today as long as patient is medically cleared. Related Data Home Medications ?Medication ?Instructions ?Recorded ?Confirmed bupropion HCl 300 mg 24 hr tablet, 300 mg PO QAM 04/02/24 04/12/24 extended release (Wellbutrin XL) docusate sodium 100 mg capsule 100 mg PO DAILY 04/02/24 04/12/24 (Colace) duloxetine 30 mg capsule,delayed 30 mg PO BID 04/02/24 04/12/24 release gabapentin 600 mg tablet 600 mg PO TID 04/02/24 04/12/24 hydroxyzine HCl 50 mg tablet 50 mg PO TID 04/02/24 04/12/24 ibuprofen 800 mg tablet 800 mg PO Q8H 04/02/24 04/12/24 naloxone 4 mg/actuation nasal 4 mg intranasal Q2M PRN overdose 04/02/24 04/12/24 spray (Narcan) prazosin 2 mg capsule 2 mg PO QPM 04/02/24 04/12/24 quetiapine 200 mg tablet (Seroquel) 200 mg PO BEDTIME 04/02/24 04/12/24 topiramate 50 mg tablet (Topamax) 50 mg PO BID 04/02/24 04/12/24 lisinopril 40 mg tablet 40 mg PO DAILY 04/10/24 04/12/24 methadone 10 mg/mL oral concentrate 200 mg PO DAILY 04/10/24 04/12/24 propranolol 10 mg tablet 10 mg PO TID 04/10/24 04/12/24 Previous Rx's ?Medication ?Instructions ?Recorded hydrocortisone 1 % lotion 1 appl topical BID PRN itching 08/05/23 (Anti-Itch (hydrocortisone)) #120 mL pramoxine 1 % topical foam 1 appl KS BID #15 grams 03/08/24 (Proctofoam) oxycodone-acetaminophen 5 mg-325 1 tab PO Q4-6H PRN pain #25 tabs 04/12/24 mg tablet (Percocet) Allergies Allergy/AdvReac Type Severity Reaction Status Date / Time No Known Allergies Allergy Verified 06/15/24 13:44 Review of Systems Review of Systems: Yes all other systems are reviewed and are negative PMFSH Past Medical History Attestation statement: The following information was validated with the patient. Source: old records reviewed and nursing notes reviewed Medical History Bipolar disorder Opioid abuse HTN (hypertension) Surgical History Hx of surgical procedure (~04/12/24) Social History Social History Housing Other:: retirement Are you a primary care trainer to a significant other at home: No Do you presently have visiting nurse or other home services: No Patient Tobacco Use Status: Current everyday Tobacco user Tobacco use type: Cigarette Cigarettes Per Day: 10 Years Smoked: 15 Advance Directives: No Advance Directives Information Provided: Yes Physical Exam ED Vital Signs: Vital Signs - 24 hr 06/15/24 13:42 06/15/24 15:03 06/15/24 15:14 Temperature 98.4 F 98.2 F 98.2 F Pulse Rate 110 H 108 H 108 H Respiratory Rate 20 20 20 Blood Pressure 137/80 148/101 H 148/101 H Pulse Oximetry 98 99 99 Oxygen Delivery Method Room Air Room Air Room Air BMI result Body Mass Index 47.5 Tachycardic to 110, vitals otherwise WNL General: Well appearing, in no acute distress. Skin: Warm, dry, intact. No rashes or lesions. Head: Normocephalic, atraumatic. EENT: Hearing is intact b/l. Conjunctiva clear. PERRLA. EOM intact. Moist mucous membranes.? Neck: Supple without LAD. FROM. Trachea midline.? Cardiac: Chest wall symmetric. RRR. Lungs: Normal respiratory effort without accessory muscle use. CTA bilaterally. Abdomen: Soft, non-tender, non-distended. No rebound tenderness or guarding Back: No midline spinous or paraspinal tenderness. No step off deformity. Ext: Upper and lower extremities atraumatic, without tenderness, deformity, swelling or erythema. Full ROM throughout. Neuro: AOx3. Normal speech. CN 2-12 grossly intact. Ambulating with steady gait. Psych: Appropriate mood and affect. Responds appropriately to questions. Course Course Course Narrative: This is a Rapid Medical Examination (RME) performed by Grayson Gauthier PA-C in triage. Full HPI, ROS, assessment and treatment plan per primary provider in the Main ED. 34 yo female assigned male at presents to the ED today for medical clearance. she currently resides in a residential recovery facility. she went to her sisters house in [place] and reports injecting heroin at that time. last used yesterday morning. No physical complaints at present. admits she has not had any of her medications, including her methadone, for 3 days. the recovery facility will not administer her medications until she is medically cleared. Plan: labs, UA, UDS Reevaluation(s) Reevaluation #1: CBC without leukocytosis or left shift. Normocytic anemia, chronic when compared to priors. H&H stable and above transfusion threshold. Chemistry without acute electrolyte abnormality requiring intervention. No TRINITY. Liver function at baseline. Urine without infection. Urine drug screen positive for methadone, fentanyl, benzodiazepines, and cocaine. > I discussed all results with patient and infant childcare provider. I did discuss case with my attending physician, Dr. Espinosa. Patient has been medically cleared for return back to Sober living Facility with resumption of all home medications including methadone. His only missed 1 dose of her methadone per the facility and may continue taking 200 mg daily. Take-home Narcan provided. Patient has remained stable throughout ED visit today. Discussed worrisome signs and symptoms and when to return to the ED. All questions answered at this time. Patient is agreeable with disposition and stable for discharge. Medical Decision Making Medical Decision Making [facility] Narrative: 34 year old female assigned male at with pmhx significant for polysubstance abuse, bipolar disorder, hypertension presents to the ED today requesting medical clearance to return back to her sober living facility. She is tachycardic to 110, vitals are otherwise WNL. She is nontoxic-appearing and in no acute distress. Sitting comfortably in the exam chair. No tremors. Not diaphoretic. Physical exam is essentially benign. Differential diagnosis includes polysubstance abuse, opioid withdrawal, anemia, electrolyte abnormality Plan for medical clearance via labs, UA, UDS. Differential Diagnosis Differential Diagnoses: The differential diagnosis associated with the presentation includes As above Admission/Observation Not indicated Lab Data [facility] Lab Attestation statement: I reviewed the patient's lab results. As above 06/15/24 13:58 06/15/24 13:58 Labs: Lab Results 06/15/24 Range/Units 13:58 WBC 10.2 (4.8-10.8) X10*3/uL RBC 4.68 (4.60-5.80) X10*6/uL Hgb 13.2 L (14.0-18.0) g/dl Hct 37.2 L (42.0-52.0) % MCV 79.5 L (80.0-98.0) fL MCH 28.2 (27.0-33.0) pg MCHC 35.5 (31.0-36.0) g/dl RDW 12.4 (11.0-16.0) % Plt Count 314 (160-400) X10*3/uL MPV 9.9 (9.4-12.4) fL Immature Gran % (Auto) 0.7 H (0.0-0.4) % Neut % (Auto) 61.4 (45-73) % Lymph % (Auto) 26.2 (20-40) % [place] % (Auto) 10.3 (2-11) % Eos % (Auto) 1.2 (0-4) % Baso % (Auto) 0.2 (0-2) % Lymph # (Auto) 2.7 (1.2-4.9) X10*3/uL [place] # (Auto) 1.1 (0.1-1.2) X10*3/uL Eos # (Auto) 0.1 (0.0-0.4) X10*3/uL Baso # (Auto) 0.0 (0.0-0.2) X10*3/uL Abs Immat Gran (auto) 0.07 H (0.00-0.03) X10*3/uL Absolute Neuts (auto) 6.3 (2.0-8.3) x10*3/uL Absolute Nucleated RBC 0.000 (0.0-0.012) X10*3/uL Nucleated RBC % (auto) 0.0 (0.0-0.2) /100WBC Sodium 137 (135-145) mmol/L Potassium 3.9 (3.3-5.1) mmol/L Chloride 101 (96-108) mmol/L Carbon Dioxide 28 (22-29) mmol/L Anion Gap 12 (12-20) BUN 15 (9-16) mg/dL Creatinine 0.90 (0.5-1.4) mg/dL Estim Creat Clear Calc 188.7 Estimated GFR > 60 Random Glucose 115 (60-115) mg/dL Calcium 9.1 (8.4-10.2) mg/dL Magnesium 2.1 (1.6-2.6) mg/dL Total Bilirubin 0.7 (0.0-1.0) mg/dL AST 37 (5-37) U/L ALT 28 (0-40) U/L Alkaline Phosphatase 87 (39-117) U/L Total Protein 7.3 (6.5-8.0) g/dL Albumin 4.2 (3.5-5.0) g/dL Lipase 7 L (8-78) U/L Urine Color Yellow Urine Appearance Clear Urine pH 6.0 (5.0-9.0) Ur Specific [place] 1.015 (1.005-1.025) Urine Protein Negative (Neg-Trace) mg/dL Urine Glucose (UA) Negative (Negative) mg/dL Urine Ketones Negative (Negative) mg/dL Urine Blood Negative (Negative) Urine Nitrite Negative (Negative) Ur Leukocyte Esterase Negative (Negative) Urine Opiates Screen Not Detected (Not Detect) Ur Buprenorphine Scrn Not Detected (Not Detect) ng/mL Ur Oxycodone Screen Not Detected (Not Detect) ng/mL Urine Methadone Screen Positive H (Not Detect) ng/mL Urine Fentanyl Screen POSITIVE H (Not Detect) Ur Barbiturates Screen Not Detected (Not Detect) Ur Phencyclidine Scrn Not Detected (Not Detect) Ur Amphetamines Screen Not Detected (Not Detect) U Benzodiazepines Scrn POSITIVE H (Not Detect) Urine Cocaine Screen POSITIVE H (Not Detect) U Marijuana (THC) Screen Not Detected (Not Detect) Independent Historian Clinical information obtained from an independent historian. History obtained from or confirmed by: Other (school community relations coordinator) External Record Review External record reviewed: Inpatient record Chronic Conditions Patient?s care impacted by: Hypertension Social Determinants Patient?s care significantly limited by Social Determinants of Health including: Other Social Determinant of Health Critical Care Time Critical Care Time Critical Care Time: No Discharge Plan Discharge Clinical Impression: Heroin abuse, Encounter for medical assessment Patient Disposition: Home, Self-Care Instructions: Narcotic Use Disorder (ED), Opioid Use Disorder (ED) Additional Instructions: Your work up today is reassuring. You have been provided with a take home dose of narcan. You are cleared to continue all home medications as prescribed per your facility. Return with new or worsening symptoms. In the case of an emergency call 911. Prescriptions: No Action hydrocortisone [Anti-Itch (HC)] 1 % lotion 1 appl topical BID PRN (Reason: itching) Qty: 120 0RF pramoxine [Proctofoam] 1 % foam 1 appl KS BID Qty: 15 0RF propranolol 10 mg tablet 10 mg PO TID lisinopril 40 mg tablet 40 mg PO DAILY methadone 10 mg/mL Concentrate 200 mg PO DAILY oxycodone-acetaminophen [Percocet] 5-325 mg tablet 1 tab PO Q4-6H PRN (Reason: pain) Qty: 25 0RF Rx Instructions: Partial Fill upon patient request. docusate sodium [Colace] 100 mg capsule 100 mg PO DAILY duloxetine 30 mg capsule,delayed release(DR/EC) 30 mg PO BID gabapentin 600 mg tablet 600 mg PO TID hydroxyzine HCl 50 mg tablet 50 mg PO TID naloxone [Narcan] 4 mg/actuation spray,non-aerosol 4 mg intranasal Q2M PRN (Reason: overdose) Rx Instructions: spray 1 dose into ONE nostril; alternate nostrils w each dose until help arrives prazosin 2 mg capsule 2 mg PO QPM quetiapine [Seroquel] 200 mg tablet 200 mg PO BEDTIME topiramate [Topamax] 50 mg tablet 50 mg PO BID bupropion HCl [Wellbutrin XL] 300 mg tablet extended release 24 hr 300 mg PO QAM ibuprofen 800 mg tablet 800 mg PO Q8H Referrals: Reba Glover MD [Primary Care Provider] - Interventions: ED Discharge Assessment Last Done: 06/15/24 15:14 Discharge Date/Time: 06/15/24 15:15 Print Language: Libyan
[2024-06-15 14:11] LABS: Basophils Percent Auto 0.2 % (0-2); Eosinophils Absolute Auto 0.1 X10*3/uL (0.0-0.4); Eosinophils Percent Auto 1.2 % (0-4); Hematocrit 37.2 % (42.0-52.0); Hemoglobin 13.2 g/dl (14.0-18.0); Imm Gran Abs Auto 0.07 X10*3/uL (0.00-0.03); Imm Gran Pct Auto 0.7 % (0.0-0.4); Lymphocytes Absolute Auto 2.7 X10*3/uL (1.2-4.9); Lymphocytes Percent Auto 26.2 % (20-40); MANUAL DIFF FLAG NO; Mean Corpuscular HGB Conc 35.5 g/dl (31.0-36.0); Mean Corpuscular Hemoglobin 28.2 pg (27.0-33.0); Mean Corpuscular Volume 79.5 fL (80.0-98.0); Mean Platelet Volume 9.9 fL (9.4-12.4); Monocytes Absolute Auto 1.1 X10*3/uL (0.1-1.2); Monocytes Percent Auto 10.3 % (2-11); Neutrophils Absolute Auto 6.3 x10*3/uL (2.0-8.3); Neutrophils Percent Auto 61.4 % (45-73); Platelet Count 314 X10*3/uL (160-400); Red Blood Count 4.68 X10*6/uL (4.60-5.80); Red Cell Distribution Width 12.4 % (11.0-16.0); White Blood Count 10.2 X10*3/uL (4.8-10.8)
[2024-06-15 14:15] LABS: Appearance Urine Clear; Color Urine Yellow; Glucose Urine UA Negative (Negative); Leukocyte Esterase Urine Negative (Negative); Nitrite Urine Negative (Negative); Specific Gravity - Urine 1.015 (1.005-1.025); Urine Blood Negative (Negative); Urine Ketones Negative (Negative); Urine Protein Negative (Neg-Trace)
[2024-06-15 14:26] LABS: Amphetamine Screen Urine Not Detected (Not Detect); Barbiturates, Urine Not Detected (Not Detect); Benzodiazepines Screen Urine POSITIVE (Not Detect); Buprenorphine Scr Not Detected (Not Detect); Cannabinoid Screen Urine Not Detected (Not Detect); Cocaine Screen Urine POSITIVE (Not Detect); Fentanyl, urine POSITIVE (Not Detect); Methadone Screen, Urine Positive (Not Detect); Opiate Screen Urine Not Detected (Not Detect); Oxycodone Screen Urine Not Detected (Not Detect); Phencyclidine Screen Urine Not Detected (Not Detect)
[2024-06-15 14:34] LABS: Alanine Aminotransferase 28 U/L (0-40); Albumin Level 4.2 g/dL (3.5-5.0); Alkaline Phosphatase 87 U/L (39-117); Anion Gap 12 (12-20); Aspartate Amino Transferase 37 U/L (5-37); Bilirubin Total 0.7 mg/dL (0.0-1.0); Blood Urea Nitrogen 15 mg/dL (9-16); Calcium 9.1 mg/dL (8.4-10.2); Carbon Dioxide 28 mmol/L (22-29); Chloride 101 mmol/L (96-108); Creatinine Clr Calc Pharmacy 188.7; Estimated Glomerular Filt Rate > 60; Glucose Random 115 mg/dL (60-115); Lipase 7 U/L (8-78); Magnesium 2.1 mg/dL (1.6-2.6); Potassium 3.9 mmol/L (3.3-5.1); Sodium 137 mmol/L (135-145); Total Protein 7.3 g/dL (6.5-8.0)
[2024-06-15 15:03] VITALS: BP 148/101; PULSE 108; RESP 20; TEMP 36.8; O2SAT 99
[2024-06-15 15:14] VITALS: BP 148/101; PULSE 108; RESP 20; TEMP 36.8; O2SAT 99
== END 2024-06-15 15:15 | disposition home or self-care (01) ==
PROVIDERS: Physician Assistant Medical; Emergency Provider Emergency Medicine; PCP Internal Medicine
DX: F19.10 Other psychoactive substance abuse, uncomplicated (principal); Z02.2 Encounter for examination for admission to residential institution; F11.20 Opioid dependence, uncomplicated; I10 Essential (primary) hypertension; F17.210 Nicotine dependence, cigarettes, uncomplicated
CPT/HCPCS: 36415; 80053; 80307; 81003; 83690; 83735; 85025; 99283

== ENCOUNTER 2024-12-12 09:35 | Outpatient (REF) | payer OTHER, SELFPAY ==
--- OUTSIDE RECORDS SUMMARY | 2024-12-12 10:39 | XMS_ITS | Clinical Summary ---
Author Organization [employer] [facility] [employer] Address [address] [place] [address] [address] [place] [address] Care Team Providers Care Executive Assistant To General Counsel Name Role Phone Mando, Shreya Unavailable Unavailable Provider, Not In System Primary Care Provider Un available Social History Tobacco Use Types Packs/Day Years Used Date Smoking Tobacco: Never Assessed Sex and Gender Information Value Date Recorded Sex Assigned at Male 2022 10:53 AM EST Legal Sex Male 10:53 AM EST Gender Identity Transgender Female 2022 10 :53 AM EST Sexual Orientation Straight 02/23/2023 9: 30 AM EDT Plan of Treatment Health Maintenance Due Date Last Done Comments Depression Screening 1992 SDOH Screening 1992 Disability Screening 1992 Alcohol/Substance Use Screening 2004 Tobacco Screening 2004 Family Planning (PISQ) 2007 Hepatitis A Vaccines (1 of 2 - Risk 2-dose series) 2011 Hepatitis B Vaccines (1 of 3 - 19+ 3-dose series) 2011 COVID-19 Vaccine ( season) 2024 Influenza Vaccine (Season Ended) 2025 DTaP/Tdap/Td Vaccines (7 - Td or Tdap) 04/10/2031 04/10/2021, 02/17/1998, 08/17/1994, Additional history exists Zoster Vaccines (1 of 2) 2042 RSV Patients and Patients Aged 60 years or older (1 - 1-dose 75+ series) 2067 HIB Vaccines Completed 08/17/1994, 07/1992, 1992, Additional history exists IPV Vaccines Completed 08/17/1994, 07/1992, 1992, Additional history exists HIV Screening Completed 06/10/2021, 05/20, 05/25/2021, Additional history exists HPV Vaccines Aged Out No longer eligi ble based on patient's age to complete this topic Meningococcal B Vaccine Aged Out No l onger eligible based on patient's age to complete this topic Meningococcal Vaccine Aged Out No williams jamaal eligible based on patient's age to complete this topic Pneumococcal Vaccine: Pediatrics (0 to 5 Years) and At-Risk Patients (6 to 49) Years Aged Out No longer eligible based on patient's age to complete this topic RSV under 20 months Aged Out No longe r eligible based on patient's age to complete this topic Rotavirus Vaccines Aged Out No longer eligible based on patient's age to complete this topic Insurance [facility] Care Teams Executive Assistant To General Counsel Relationship Specialty Start Date End Date Provider, Not In System PCP - General Family Medicine 03/01/23 Shreya Gilmore Navigator Financial Counseling and Assistance Services 03/01/23
[2024-12-12 13:39] LABS: Estimated Average Glucose 108 mg/dL; Hemoglobin A1C 128.5026 umol/L; Hemoglobin A1c % 5.4 % (<6.0); Total Hemoglobin (HGBA1C) 3610.9181 umol/L
[2024-12-12 13:49] LABS: Alanine Aminotransferase 19 U/L (0-40); Albumin Level 4.5 g/dL (3.5-5.0); Alkaline Phosphatase 107 U/L (39-117); Anion Gap 11 (12-20); Aspartate Amino Transferase 18 U/L (5-37); Bilirubin Total 0.3 mg/dL (0.0-1.0); Blood Urea Nitrogen 18 mg/dL (9-16); Calcium 8.8 mg/dL (8.4-10.2); Carbon Dioxide 23 mmol/L (22-29); Chloride 106 mmol/L (96-108); Cholesterol 208 mg/dL (<200); Estimated Glomerular Filt Rate > 60; Glucose Random 114 mg/dL (60-115); HDL Cholesterol 37 mg/dL (>40); LDL Cholesterol Calculated 127 mg/dL (<100); Sodium 136 mmol/L (135-145); Total Protein 7.2 g/dL (6.5-8.0); Triglycerides 223 mg/dL (<150)
== END 2024-12-12 09:36 | disposition home or self-care (01) ==
LOC: HO.10HDL 09:35
PROVIDERS: Visit Provider Internal Medicine
DX: Z00.00 Encounter for general adult medical examination without abnormal findings (principal); F11.21 Opioid dependence, in remission; F31.9 Bipolar disorder, unspecified; I10 Essential (primary) hypertension; Z72.0 Tobacco use
CPT/HCPCS: 36415; 80053; 80061; 83036